=== PATIENT | female | born 1945 | race Caucasian/White ===

== ENCOUNTER → 2016-08-19 | Outpatient (REF) | payer MEDICARE, OTHER | LOC: M LAB REF 17:08 | PROVIDERS: ATTEND Internal Medicine Nephrology | DX: R60.0 Localized edema (principal) ==

== ENCOUNTER → 2017-08-05 | Outpatient (REF) | payer MEDICARE, OTHER ==
[2017-08-05 13:50] LABS: FERRITIN 19 NG/ML (8-252); IRON (FE) 114 UG/DL (50-170); PERCENT SATURATION 33.5 % (13.2-45.0); TOTAL IRON BINDING CAPACITY 340 UG/DL (250-450)
[2017-08-05 13:58] LABS: VITAMIN B12 LEVEL 473 PG/ML (247-911)
[2017-08-05 13:59] LABS: FOLATE 7.9 NG/ML (>5.4)
== END ==
LOC: M LAB REF 13:19
DX: D64.9 Anemia, unspecified (principal)
CPT/HCPCS: 82746

== ENCOUNTER → 2018-04-12 | Outpatient (CLI) | payer MEDICARE, OTHER | LOC: M LRY 13:22 | DX: N18.9 Chronic kidney disease, unspecified (principal); R31.9 Hematuria, unspecified | CPT/HCPCS: 76775 ==

== ENCOUNTER → 2018-07-13 | Outpatient (CLI) | payer MEDICARE, OTHER ==
--- NOTE | 2018-07-13 14:39 | REP ---
Chest two views HISTORY: Cough Comparison: None Linear densities are present in the left lower lobe consistent with atelectasis or scar. The right lung is clear. The heart is normal in size. The pulmonary vasculature is normal in appearance. The bony structure is intact. IMPRESSION: Left lower lobe atelectasis or scar. Electronically Signed by Vikram Hughes MD 07/13/2018 02:30 P
== END ==
LOC: M LRY 11:45
PROVIDERS: ATTEND Physician Assistant
DX: R91.8 Other nonspecific abnormal finding of lung field (principal); R05 Cough

== ENCOUNTER 2018-08-04 15:17 | Day surgery (SDC) | payer MEDICARE, OTHER ==
[~2018-08-04] VITALS: Ht 154.9 cm; Wt 54.5 kg
[2018-08-04] MEDS ORDERED: MAG400TA PO (15:34)
[2018-08-04] MEDS ORDERED: LISI-538 (15:34)
[2018-08-04] MEDS ORDERED: CALC600T6 (15:34)
[2018-08-04] MEDS ORDERED: METO1TAB7 PO (15:34)
[2018-08-04] MEDS ORDERED: LISI20TA PO (15:34)
[2018-08-04] MEDS ORDERED: SIMV40TA2 PO (15:34)
[2018-08-04] MEDS ORDERED: LEVO137T2 PO (15:34)
[2018-08-04] MEDS ORDERED: METF-723 PO (15:34)
[2018-08-04] MEDS ORDERED: OMEP40CA2 PO (15:34)
[2018-08-04] MEDS ORDERED: ADACEL/BOOSTRIX VACCINE (DIPHTH/PERTUSS/ACELL/TETANUS)0.5ML SYR (90715) IM ONE (15:45)
[2018-08-04] MEDS ORDERED: MORPHINE 2 MG/ML 1ML SYRINGE (J2270) IM ONE (16:00)
--- NOTE | 2018-08-04 16:48 | REP ---
PORTABLE LEFT WRIST, FOUR VIEWS: HISTORY: Injury. There are comminuted fractures of the distal radius and ulna. There is lateral displacement of the distal fracture fragments. There is narrowing of the lateral carpal and greater multangular first metacarpal joint spaces. IMPRESSION: Comminuted fractures of the distal radius and ulna. Electronically Signed by Vkiram Hughes MD 08/04/2018 04:54 P
[2018-08-04] MEDS ORDERED: cefTRIAXone SOD 1 GM in D5W MINI-BAG PLUS 50 ML IV ONE (17:00)
[2018-08-04 17:59] LABS: BASO % 0.3 % (0.0-1.0); EOS # 0.2 10^3/uL (0.0-0.50); EOS % 2.7 % (0.0-3.0); HEMATOCRIT 38.1 % (36.0-47.0); HEMOGLOBIN 11.9 g/dl (12.0-15.5); LYMPH # 1.3 10^3/uL (1.5-4.5); LYMPH % 16.1 % (24.0-44.0); MEAN CORPUSCULAR HEMOGLOBIN 26.1 pg (27.0-33.0); MEAN CORPUSCULAR HGB CONC 31.2 g/dl (32.0-36.5); MEAN CORPUSCULAR VOLUME 83.6 fl (80.0-96.0); MONO # 0.4 10^3/uL (0.0-0.8); MONO % 4.6 % (0.0-5.0); NEUTROPHILS % 75.8 % (36.0-66.0); PLATELET COUNT, AUTOMATED 330 10^3/uL (150-450); RED BLOOD COUNT 4.56 10^6/uL (4.00-5.40); WHITE BLOOD COUNT 7.8 10^3/uL (4.0-10.0)
[2018-08-04 18:25] LABS: INR 0.92; PROTHROMBIN TIME 12.4 SECONDS (12.1-14.4)
[2018-08-04 18:26] LABS: PARTIAL THROMBOPLASTIN TIME 30.6 SECONDS (25.4-37.6)
[2018-08-04] MEDS ORDERED: ROCURONIUM BROMIDE 50 MG/5 ML VIAL As Ordered ONE (18:28)
[2018-08-04] MEDS ORDERED: PROPOFOL 200 MG/20 ML VIAL As Ordered ONE (18:28)
[2018-08-04] MEDS ORDERED: LIDOCAINE 2% INJ 100 MG/5 ML SDV (FOR ANES.) As Ordered ONE (18:28)
[2018-08-04] MEDS ORDERED: ONDANSETRON 4MG/2ML VIAL (J2405) As Ordered ONE (18:28)
[2018-08-04] MEDS ORDERED: dexameTHASONE 4 MG/ML 1ML VIAL (J1100) As Ordered ONE ×2 (18:28→18:33)
[2018-08-04] MEDS ORDERED: fentaNYL 100 MCG/2 ML INJECTION (J3010) As Ordered ONE (18:29)
[2018-08-04] MEDS ORDERED: MIDAZOLAM INJ 2 MG/2 ML VIAL (J2250) As Ordered ONE (18:29)
[2018-08-04] MEDS ORDERED: BUPIVACAINE/EPIN 0.25% 30 ML VIAL As Ordered ONE (18:38)
[2018-08-04] MEDS ORDERED: ceFAZolin 1GM INJ (J0690 PER 500MG) As Ordered ONE (18:38)
--- NOTE | 2018-08-04 18:43 | ED PDOC ---
Post-Departure Follow-Up SPOKE WITH DR. OSORIO, ANESTHESIA, REGARDING PT. ADVISED B/P UPON ARRIVAL WAS HIGH AND WILL BE RETAKEN MANUALLY BEFORE SHE GOES TO THE OR. ADVISED WHEN DR. HANSON SAW THIS PT, HE DID NOT THINK THE PT NEEDED TO BE SEEN BY HOSPITALIST PRIOR TO HER GOING TO THE O.R. WILL RECHECK THE B/P PRIOR TO PT LEAVING THE E.D. MARCOS POWELL PA-C Aug 04, 2018 18:43
[2018-08-04] MEDS ORDERED: MORPHINE 2 MG/ML 1ML SYRINGE (J2270) IV ONE (18:45)
[2018-08-04] MEDS ORDERED: PATIENT COMMENTS (18:51)
--- NOTE | 2018-08-04 18:54 | REP ---
Portable chest x-ray: Single view: History: Preop. Comparison study: July 13, 2018. Findings: There is a prominent soft tissue density in the right cardiophrenic angle consistent with a prominent epicardial fat pad. The lungs are well inflated and otherwise clear. There is minimal linear fibrosis in the left base. Heart is not enlarged. The aorta is somewhat tortuous. No significant bony abnormality. Impression: Prominent epicardial fat pad in the right cardiophrenic angle. Linear fibrosis left base. Otherwise no acute disease. Electronically Signed by Tk Arteaga MD 08/04/2018 07:23 P
[2018-08-04 19:30] LABS: BLOOD UREA NITROGEN 17 MG/DL (7-18); CALCIUM LEVEL 8.1 MG/DL (8.8-10.2); CARBON DIOXIDE LEVEL 27 MEQ/L (21-32); CHLORIDE LEVEL 104 MEQ/L (98-107); CREATININE FOR GFR 0.91 MG/DL (0.55-1.30); GLOMERULAR FILTRATION RATE > 60.0 (>39); GLUCOSE, FASTING 103 MG/DL (70-100); POTASSIUM SERUM 4.2 MEQ/L (3.5-5.1); SODIUM LEVEL 138 MEQ/L (136-145)
[2018-08-04] MEDS ORDERED: LABETALOL HCL 100 MG/20 ML VIAL IV STA (19:37)
--- NOTE | 2018-08-04 20:05 | CR.PDOC ---
General Date of Consultation: Aug 04, 2018 Referring Provider: Bernabe Holly MD Consultation REASON FOR CONSULTATION/CHIEF COMPLAINT: Risk assessment for this 72-year-old woman with left wrist fracture. HISTORY OF PRESENT ILLNESS: Patient is a 72-year-old woman with medical history significant for GERD, hyperlipidemia, hypothyroidism, diabetes and hypertension. Reason for consult, patient being planned for external fixation of her left wrist fracture, hence risk assessment. Patient was in her usual state of health until sometime today while walking to the mailbox, she slipped and fell, impacting her left arm on the ground with resultant fracture to the left wrist. She denied any loss of consciousness prior to the events or after she fell. She felt a lot of pain afterwards and activated EMS. Patient is able to walk 3-4 flights of stairs without being short of breath. She is a nonsmoker and adheres to her treatments and is compliant on her prescribed medications. She denies any chest pain, palpitations, shortness of breath, cough, nausea, vomiting, no change in her bowel or urinary habits. No unusual lower extremity swellings. No lower extremity pains. ALLERGIES: Please see below. HOME MEDICATIONS: Please see below. PAST MEDICAL HISTORY: Per HPI PAST SURGICAL HISTORY: 1. Removal of cyst from ovary 30 years ago 2. Tonsillectomy. 3. Gallbladder removal. FAMILY HISTORY: Father: , from a heart attack Mother: , was diagnosed with pancreatic cancer Siblings: from ovarian cancer Children: 2 children, lost her son at an early age. SOCIAL HISTORY: and lives with her . Denies alcohol use. Denies smoking, denies illicit drug use. REVIEW OF SYSTEMS: She denies any chest pain, palpitations, shortness of breath, cough, nausea, v omiting, no change in her bowel or urinary habits. No unusual lower extremity swellings. No lower extremity pains. All other system review negative. 10 point review of system was done. PHYSICAL EXAMINATION: GENERAL APPEARANCE: Elderly woman, lying calmly in bed, not in any apparent distress. She is not pale, anicteric and afebrile HEENT: Atraumatic. Neck: Supple. LUNGS: Clear to auscultation bilaterally. CARDIOVASCULAR: S1 and 2 heard, no murmurs, rubs or gallops. ABDOMEN: Soft, not tender, not distended. Bowel sounds normoactive. MUSCULOSKELETAL: Left hand splint. EXTREMITIES: No pedal edema, 2+ bilateral pedal pulses noted. NEUROLOGICAL: Awake, alert, oriented 3. PSYCHIATRIC: Normal affect LABORATORY DATA: Please see below. DIAGNOSES: Left wrist fracture Elevated systolic blood pressure. RECOMMENDATIONS: 1. I will give patient a stat dose of IV labetalol 10 mg it is clear that her level of pain may be responsible for elevated systolic blood pressure at this time. 2. Labs and EKG reviewed and within acceptable limits. 3. Patient is a moderate risk going for a low to moderate risk procedure. I do not see any reason for holding her surgery. 4. She may be commenced on her usual outpatient medications post surgery as soon as is safe for her to take by mouth. 5. DVT prophylaxis will be deferred to the surgeons to start as soon as when safe. 6. Thank you for the opportunity to take care of your patient. Vital Signs/I&O Vital Signs Date Time Temp Pulse Resp B/P (MAP) Pulse Ox O2 Delivery O2 Flow Rate FiO2 08/04/18 19:31 62 18 184/86 (118) 99 08/04/18 15:22 98.8 Room Air Laboratory Data Labs 24H Laboratory Tests 2 08/04/18 17:51: Immature Granulocyte % (Auto) 0.5, White Blood Count 7.8, Red Blood Count 4.56, Hemoglobin 11.9L, Hematocrit 38.1, Mean Corpuscular Volume 83.6, Mean Corpuscular Hemoglobin 26.1L, Mean Corpuscular Hemoglobin Concent 31.2L, Red Cell Distribution Width 14.8H, Platelet Count 330, Neutrophils (%) (Auto) 75.8H, Lymphocytes (%) (Auto) 16.1L, Monocytes (%) (Auto) 4.6, Eosinophils (%) (Auto) 2.7, Basophils (%) (Auto) 0.3, Neutrophils # (Auto) 6.0, Lymphocytes # (Auto) 1.3L, Monocytes # (Auto) 0.4, Eosinophils # (Auto) 0.2, Basophils # (Auto) 0.0, Nucleated Red Blood Cells % (auto) 0.0, Prothrombin Time 12.4, Prothromb Time International Ratio 0.92, Activated Partial Thromboplast Time 30.6, Anion Gap 7L, Glomerular Filtration Rate > 60.0, Blood Urea Nitrogen 17, Creatinine 0.91, Sodium Level 138, Potassium Level 4.2, Chloride Level 104, Carbon Dioxide Level 27, Calcium Level 8.1L CBC/BMP Laboratory Tests 08/04/18 17:51 Red Blood Count 4.56, Mean Corpuscular Volume 83.6, Mean Corpuscular Hemoglobin 26.1 L, Mean Corpuscular Hemoglobin Concent 31.2 L, Red Cell Distribution Width 14.8 H, Neutrophils (%) (Auto) 75.8 H, Lymphocytes (%) (Auto) 16.1 L, Monocytes (%) (Auto) 4.6, Eosinophils (%) (Auto) 2.7, Basophils (%) (Auto) 0.3, Neutrophils # (Auto) 6.0, Lymphocytes # (Auto) 1.3 L, Monocytes # (Auto) 0.4, Eosinophils # (Auto) 0.2, Basophils # (Auto) 0.0, Calcium Level 8.1 L Allergies Coded Allergies: No Known Allergies (Unverified , 08/04/18) Home Medications Scheduled (Lisinopril/Hydrochlorothi 20-12.5 mg) 1 Tab Tab, 1 TAB PO DAILY, (Reported) Levothyroxine Sodium (Synthroid) 137 Mcg Tab, 137 MCG PO DAILY, (Reported) UNSURE OF DOSAGE Magnesium Oxide (Magnesium Oxide) 400 Mg Tab, 400 MG PO DAILY, (Reported) Metformin Hydrochloride (Metformin Hydrochloride E) 500 Mg Tab, 500 MG PO DAILY, (Reported) Metoprolol Succinate (Metoprolol Succinate ER) 50 Mg Tab, 50 MG PO DAILY, (R eported) Omeprazole (Omeprazole) 40 Mg Cap, 40 MG PO DAILY, (Reported) Simvastatin - High Dose (Simvastatin) 40 Mg Tab, 40 MG PO DAILY, (Reported) Miscellaneous Medications Calcium/Vitamin D (Calcium/Vitamin D 600-400 mg-Unit) 1 Tab Tab, (Reported) [Patient Comments] , (Reported) UNABLE TO CONFIRM DOSAGE OF LEVOTHYROXINE. PATIENT GETS HER MEDICATIONS DANDRE KIMBROUGH. SHE WILL HAVE SOMEONE BRING IN A LIST OF HER MEDICATIONS TOMORROW, Thursday08/05/2018 JOHNSON KENNEY MD Aug 04, 2018 20:05
[2018-08-04] MEDS ORDERED: ceFAZolin 2 GM/D5W 50 ML IV BAG (J0690 PER 500MG) As Ordered ONE (20:24)
[2018-08-04] MEDS ORDERED: ePHEDrine SULFATE 25 MG/5 ML(5MG/ML) SYRINGE As Ordered ONE (20:56)
[2018-08-04] MEDS ORDERED: HYDROmorphone HCL 2 MG/ML 1ML VIAL (J1170) As Ordered ONE (21:12)
--- NOTE | 2018-08-04 21:22 | ECGEPIP ---
Stationary ECG Study 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
[2018-08-04] MEDS ORDERED: MORPHINE 4 MG/ML 1ML VIAL/SYRINGE (J2270) IV PRN (22:00)
[2018-08-04] MEDS ORDERED: fentaNYL 100 MCG/2 ML INJECTION (J3010) IV PRN (22:00)
[2018-08-04] MEDS ORDERED: ONDANSETRON 4MG/2ML VIAL (J2405) IV PRN ×2 (22:00)
[2018-08-04] MEDS ORDERED: PERCOCET 5MG/325MG TAB PO PRN (22:00)
[2018-08-04] MEDS ORDERED: LR 1,000 ML IV SCH (22:00)
[2018-08-04] MEDS ORDERED: D5W/LR 1,000 ML IV SCH (22:00)
[2018-08-04] MEDS: PERCOCET 5MG/325MG TAB PO PRN (22:03)
[2018-08-04 22:45] VITALS: BP 180/82
[2018-08-04 23:15] VITALS: BP 172/80
[2018-08-05 00:15] VITALS: BP 178/78
[2018-08-05 01:33] VITALS: BP 172/76
[2018-08-05 02:30] VITALS: BP 163/70
[2018-08-05] MEDS: PERCOCET 5MG/325MG TAB PO PRN (02:31)
[2018-08-05 03:30] VITALS: BP 159/72
[2018-08-05 06:00] VITALS: BP 152/68
[2018-08-05] MEDS ORDERED: PERC5TAB12 PO (06:42)
[2018-08-05] MEDS ORDERED: metFORMIN (GLUCOPHAGE) 500 MG TAB PO SCH (08:00)
[2018-08-05 08:36] VITALS: BP 152/68
--- NOTE | 2018-08-05 08:49 | REP ---
Left wrist: Five views intraoperative: History: Left wrist fracture. 58 seconds of fluoroscopy time is reported. Findings: Five views of the left wrist obtained intraoperatively document external pin fixation and fracture reduction alignment. Electronically Signed by Tk Arteaga MD 08/05/2018 01:44 P
[2018-08-05] MEDS ORDERED: MAGNESIUM OXIDE 400 MG TAB (MAG-OX) PO SCH (09:00)
[2018-08-05] MEDS ORDERED: METOPROLOL SUCC (TopROL XL) 50MG **XL** TAB PO SCH (09:00)
--- NOTE | 2018-08-05 10:25 | CR ---
DATE OF CONSULTATION: 08/04/2018 Consultation for left wrist fracture deformity. HISTORY: A 72-year-old woman who fell on outstretched left upper extremity on ice getting the mail earlier today. The injury happened at 2 o'clock in the afternoon. Last meal at 11:30 a.m. She had no loss of consciousness. She was referred to the emergency room by emergency. She had imaging studies that reflected a comminuted intra-articular fracture of the distal radius and ulna, grossly with deformity. Her , Jourdan, is at home. He had some medical issues, as well, and is recovering from other surgeries himself. She has no known drug allergies. MEDICAL HISTORY: Includes history of hypothyroidism, hypertension, noninsulin-dependent diabetes for about 5 years, gastrointestinal (GI) reflux, and renal issues secondary to her diabetes. No recent surgeries. FAMILY HISTORY: Not contributory. REVIEW OF SYSTEMS: She is not complaining of any changes or new issues with neurologic status, headache, shortness of breath. No chest pain, no endocrine disorder. Denies numbness, denies tingling. Review of systems otherwise per history of present illness (HPI). CLINICAL EXAMINATION: Alert and cooperative. Mood and affect are appropriate. Appears to be her stated vintage of 72 or a bit younger. She is pleasant and cognitive. Clear voice. Left upper extremity: Obvious deformity. Sensate fingers. Tenderness with any manipulation. No trauma about the elbow. Small open wound on the ulnar side of the wrist with no active bleeding from that. No exposed bone. Palpable radial pulse is regular about 70 beats per minute. IMPRESSION: Comminuted intra-articular left wrist fracture involving the distal radius and ulna. RECOMMENDATIONS: I talked to the patient about different treatment options, including plating versus placement of an external fixator. I think in this case, external fixator is reasonable due to the significant comminution and deformity. She agreed to proceed with placement of an external fixator on the left wrist. We talked about the procedure. He had a discussion of risks including not limited to pain, failure, pin infection, need for more surgery, stiffness, and other issues. The patient agreed to proceed. Next, coordinated surgical scheduling with operating room (OR) staff. Talked with Dr. Christopher, anesthesia, with respect to OR scheduling, as well as coordinating with vendor for external fixator system. Also, preoperatively, I did meet with the patient's daughter in the preoperative holding area and discussed again the procedure. I spent approximately 1 hour with this patient and her case. MEDICATIONS: Include metformin 500 mg taken daily (dictation cut off) at night that she cannot remember the name of, and she also takes levothyroxine. For further details, please refer to medical record.
--- NOTE | 2018-08-05 13:14 | RO ---
DATE OF PROCEDURE: 08/04/2018 PREOPERATIVE DIAGNOSIS: Comminuted left wrist fracture involving the distal radius and the ulna. POSTOPERATIVE DIAGNOSIS: Comminuted left wrist fracture involving the distal radius and the ulna. PROCEDURE PERFORMED: Closed reduction of fracture and placement of external fixator device. SURGEON: Bernabe Holly MD ASSISTING: None. ANESTHESIA: Dr. Christopher, laryngeal mask airway (LMA), general. ESTIMATED BLOOD LOSS: Less than 20 mL, replaced with crystalloid. No tourniquet was required. No complications. COMPONENTS USED: Include Synthes size small external fixator set. CONSENT: Consent was reviewed in detail with the patient prior to the procedure. INDICATIONS FOR THE PROCEDURE: Fall on ice on outstretched left upper extremity. OPERATIVE COURSE: Identified holding area, site and side verified, brought to the operating room. Once the patient was anesthetized, she was prepped and draped in the usual fashion for exposure. Next, the distal radial diaphysis metaphysis area was palpated. I outlined the incision with a marking pen at the radial aspect. Incision was infiltrated with 0.25% Marcaine with epinephrine made with a 10 blade knife. Soft tissues were protected. Dissection continued down to the surface of the lateral aspect of the radius. Next, soft tissue protectors were utilized. I then drilled and placed the fixator pins. Next, once this was accomplished I verified placement fluoroscopically. Next, the wound was irrigated. The wound was closed around the pins using interrupted nylon stitch. Next, attention was turned to the second metacarpal. Incision was outlined with a marking pen. Dorsal lateral two incisions were made, developed down to the surface the metacarpal. The fixator pin guide was installed. The pins were drilled and placed. Next, these wounds were irrigated, closed with nylon around the pins. Next, the closed reduction was again implemented with significant improvement and appreciation of quite significant comminution. Next, the fixator was assembled and secured. Final fluoroscopic images reflected reduction of the fracture. Next, dressings were applied, pin protectors were installed. The fixator was verified to be secure. Final dressing was applied. The patient was then extubated, moved to the recovery room in good condition. For further details please refer to medical record.
== END 2018-08-05 10:36 | disposition home or self-care (01) ==
LOC: M ED 15:17 → EDBD 15:17 → M SDC 18:00 → M MS5PR 22:21 → M SDC 08-05 10:36
PROVIDERS: ATTEND Orthopaedic Surgery
DX: S52.592A Other fractures of lower end of left radius, initial encounter for closed fracture (principal); S52.692A Other fracture of lower end of left ulna, initial encounter for closed fracture; I10 Essential (primary) hypertension; E78.5 Hyperlipidemia, unspecified; E11.9 Type 2 diabetes mellitus without complications; E03.9 Hypothyroidism, unspecified; K21.9 Gastro-esophageal reflux disease without esophagitis; F32.9 Major depressive disorder, single episode, unspecified; Z79.899 Other long term (current) drug therapy; Z79.84 Long term (current) use of oral hypoglycemic drugs; W00.0XXA Fall on same level due to ice and snow, initial encounter; Y93.89 Activity, other specified; Y92.89 Other specified places as the place of occurrence of the external cause; Y99.8 Other external cause status
CPT/HCPCS: 20690; 25606; 71045; 73100; 73110; 80048; 85025; 85610; 85730; 90715; 93005; 96372; 96374; 99284; C1713; J0690; J0696; J1100; J1170; J2250; J2270; J2405; J3010

== ENCOUNTER → 2018-10-28 | Outpatient (REF) | payer MEDICARE, OTHER ==
[~2018-10-28] MED LIST: CALC600T6; LEVO137T2 PO; LISI-538; LISI20TA PO; MAG400TA PO; METF-723 PO; METO1TAB7 PO; OMEP40CA2 PO; PATIENT COMMENTS; PERC5TAB12 PO; SIMV40TA2 PO
[2018-10-28 18:48] LABS: BACTERIA, URINE AUTO NEGATIVE (NEGATIVE); RBC, URINE AUTO 3 /HPF (0-3); SQUAMOUS EPITHELIAL CELL UR AU 0 /HPF (0-6); WBC, URINE AUTO 0 /HPF (0-3)
== END ==
LOC: M LAB REF 17:33
PROVIDERS: ATTEND Internal Medicine Nephrology
DX: R31.9 Hematuria, unspecified (principal)

== ENCOUNTER → 2019-08-12 | Outpatient (CLI) | payer MEDICARE, OTHER ==
[~2019-08-12] MED LIST changes: -LISI20TA PO; +LISI20TA19 PO; -OMEP40CA2 PO; +OMEP40CA97 PO; -SIMV40TA2 PO; +SIMV40TA20 PO
--- NOTE | 2019-08-12 10:52 | REP ---
Clinical: Preoperative assessment. Technique: PA and lateral. Comparison: 08/04/2018, 07/13/2018 Findings: Abnormally large rounded contour along the right cardiac border is identified but essentially unchanged. Mediastinum and remainder of the cardiac silhouette are otherwise normal. Lung esquivel are clear. No consolidation or effusion. No pneumothorax. Skeletal structures are intact. Impression: Stable examination. No acute cardiopulmonary process identified. Electronically Signed by Eddie Ferreira MD 08/12/2019 10:44 A
== END ==
LOC: M LRY 09:55
PROVIDERS: ATTEND Internal Medicine Cardiovascular Disease
DX: Z01.811 Encounter for preprocedural respiratory examination (principal)

== ENCOUNTER 2019-08-22 08:53 | Inpatient (IN) | payer MEDICARE, OTHER ==
--- NOTE | 2019-08-18 16:20 | HPE ---
DATE OF ADMISSION: 08/22/2019 ATTENDING PHYSICIAN: Dr. Drake Botello CHIEF COMPLAINT: Left knee pain and stiffness. HISTORY: This is a pleasant 73-year-old female patient with progressively worsening left knee pain and stiffness that has failed to improve with conservative management. She has elected for surgical treatment for her continued symptoms. She has consented for a left total knee arthroplasty with Dr. Drake Botello. ALLERGIES: NO KNOWN DRUG ALLERGIES. CURRENT MEDICATIONS: - raloxifene 60 mg one p.o. daily - calcium 600 with vitamin D one p.o. b.i.d. - Toprol XL 50 mg one p.o. daily - lisinopril/hydrochlorothiazide 20 / 12.5 one p.o. daily - metformin 500 mg one p.o. daily - citalopram 40 mg one p.o. daily - meloxicam 15 mg one p.o. daily - omeprazole 40 mg one p.o. daily - simvastatin 40 mg one p.o. daily - levothyroxine 112 mcg one p.o. daily - ferrous sulfate 325 mg one p.o. daily - glipizide 5 mg one p.o. daily - albuterol 1 puff p.o. q.4-6 hours as needed for wheezing PAST MEDICAL HISTORY: Hypertension, hyperlipidemia, diabetes, stage III kidney failure, thyroid disease. PAST SURGICAL HISTORY: Noncontributory. FAMILY HISTORY: Noncontributory. SOCIAL HISTORY: Denies alcohol or tobacco use. REVIEW OF SYSTEMS: Denies fever, chills, chest pain, shortness breath, nausea, vomiting, diarrhea. Does report a recent upper respiratory infection for which she is finishing antibiotics today. Reports pain and stiffness with weightbearing activities in the left knee. PHYSICAL EXAMINATION: Height 59.75 inches, weight 151 pounds, temperature 97.5, blood pressure 121/78, pulse 67, respirations 14. Normocephalic, atraumatic. Neck: Supple and nontender with no lymphadenopathy or jugular venous distention (JVD). Cardiovascular: S1, S2 auscultated. Lungs: Clear to auscultation bilaterally. Abdomen: Soft, nontender. Extremities: Left lower extremity well perfused with intact range of motion with diffuse tenderness to palpation about the left knee. Overlying skin is intact with no rashes or breaks in the skin. LABORATORIES: White blood count 5.4, red blood count 4.53, hemoglobin 12.5, hematocrit 40.5, BUN 13, creatinine 1, ESR 13, PT 12.1, INR 0.89. EKG with long QT interval, possible hypocalcemia or quinidine like drug. Chest x-ray with no acute cardiopulmonary process. Medical optimization by Dede Gardner NP reviewed and reconciled, per chart today. IMPRESSION: Symptomatic left knee degenerative changes. PLAN: Consented for left total knee arthroplasty with Dr. Drake Botello on 08/22/2019.
[~2019-08-22] VITALS: Ht 154.9 cm; Wt 70.8 kg
[2019-08-22] VITALS (8 sets, daily range): BP systolic 118–132; BP diastolic 57–62; O2SAT 97
[~2019-08-22 08:53] MED LIST changes: -CALC600T6; +CALC600T6 PO; +CITA40TA4 PO; +FERR325T3 PO; +FISH1000 PO; +LR 1,000 ML IV ONE; +ceFAZolin SOD 2 GM in IV 1 EA IV ONE
[2019-08-22] MEDS ORDERED: fentaNYL 100 MCG/2 ML INJECTION (J3010) As Ordered ONE (10:25)
[2019-08-22] MEDS ORDERED: MIDAZOLAM INJ 2 MG/2 ML VIAL (J2250) As Ordered ONE ×2 (10:25→10:41)
[2019-08-22] MEDS ORDERED: LIDOCAINE 2% INJ 100 MG/5 ML SDV (FOR ANES.) As Ordered ONE (10:39)
[2019-08-22] MEDS ORDERED: propofoL 200 MG/20 ML VIAL As Ordered ONE (10:39)
[2019-08-22] MEDS ORDERED: ONDANSETRON 4MG/2ML VIAL (J2405) As Ordered ONE (10:40)
[2019-08-22] MEDS: MIDAZOLAM INJ 2 MG/2 ML VIAL (J2250) IV PRN ×2 (10:48→10:51)
[2019-08-22] MEDS ORDERED: ceFAZolin 1GM INJ (J0690 PER 500MG) As Ordered ONE (11:04)
[2019-08-22] MEDS ORDERED: BUPIVACAINE LIPOSOME/PF 1.3% 20ML VIAL (13.3MG/ML)(EXPAREL)(C9290 PER1MG) As Ordered ONE (11:05)
[2019-08-22] MEDS ORDERED: LIDOCAINE 1% MDV 20ML VIAL ONE (11:17)
[2019-08-22] MEDS ORDERED: ROPIvacaine 0.5% 30 ML INJECTION (J2795 PER 1MG) ONE (11:17)
[2019-08-22] MEDS ORDERED: EPINEPHrine INJ 1 MG/ML 1ML VIAL ONE (11:17)
[2019-08-22] MEDS ORDERED: fentaNYL 100 MCG/2 ML INJECTION (J3010) IV PRN ×2 (11:30→13:45)
--- NOTE | 2019-08-22 11:42 | IPN ---
DATE: 08/22/2019 Patient seen and examined. She wishes to go ahead with a left total knee arthroplasty. Preop clearance was obtained. She understands the nature this, the risks of bleeding, infection, damage to nerves, vessels, persistent pain, wear loosening, blood clots, medical problems, , among others.
[2019-08-22] MEDS ORDERED: ePHEDrine SULFATE 25 MG/5 ML(5MG/ML) SYRINGE As Ordered ONE (12:12)
[2019-08-22] MEDS ORDERED: TRANEXAMIC ACID 100 MG/ML 10ML VIAL As Ordered ONE (12:25)
[2019-08-22] MEDS ORDERED: EPINEPHrine INJ 1 MG/ML 1ML VIAL As Ordered ONE (12:25)
[2019-08-22] MEDS ORDERED: ACETAMINOPHEN 1000MG 100ML IV BTL (OFIRMEV) (J0131 PER 10MG) As Ordered ONE (12:25)
[2019-08-22] MEDS ORDERED: ONDANSETRON 4MG/2ML VIAL (J2405) IV PRN ×2 (13:45→14:00)
[2019-08-22] MEDS ORDERED: PERCOCET 5MG/325MG TAB PO PRN ×4 (13:45→20:45)
[2019-08-22] MEDS ORDERED: LR 1,000 ML IV SCH ×2 (13:45→14:00)
[2019-08-22] MEDS ORDERED: METOCLOPRAMIDE INJ 10MG/2ML VIAL (J2765) IV PRN (13:45)
[2019-08-22] MEDS ORDERED: traMADol 50 MG TAB PO PRN (14:00)
[2019-08-22] MEDS ORDERED: MORPHINE 2 MG/ML 1ML VIAL (J2270) IV PRN (14:00)
[2019-08-22] MEDS ORDERED: MORPHINE 4 MG/ML 1ML VIAL/SYRINGE (J2270) IV PRN (14:00)
--- NOTE | 2019-08-22 14:20 | REP ---
LEFT KNEE, TWO VIEWS: Two views left knee performed. Total knee prosthesis is in place and appears to be in good position. Osseous structures are intact and well aligned. Metallic skin luisa are seen anteriorly. There is air in the anterior soft tissues. Electronically Signed by Espinoza Espinal MD 08/22/2019 04:02 P
--- NOTE | 2019-08-22 16:10 | CR.PDOC ---
General Date of Consultation: Aug 22, 2019 Consultation REASON FOR CONSULTATION/CHIEF COMPLAINT: Management of medical comorbidities s/p total left knee arthroplasty HISTORY OF PRESENT ILLNESS: Ms Taveras is a pleasant 73 year old woman with a long history of osteoarthritis. She has failed outpatient treatment and has given consent to have a total left knee replacement today. She is seen post-op in the PACU; pt reported she is doing very well, no pain or discomfort and feels well enough to walk down the hallway. NO further issues reported at this time. ALLERGIES: Please see below. HOME MEDICATIONS: Please see below. PAST MEDICAL HISTORY: 1. Hypertension 2. DMII 3. Hyperlipidemia 4. Stage III CKD 5. Hypothyroidism PAST SURGICAL HISTORY: 1.Cholecystectomy 2.Tonsillectomy 3. Ovarian cyst removal FAMILY HISTORY: Father: [place], prostate ca, Heart disease Mother: [place], Heart disease, pancreatic ca Siblings: d/t ovarian ca SOCIAL HISTORY: Tobacco use: smoked 25-30 years ago ETOH: denied Illicit drug use: denied IV drug use: denied REVIEW OF SYSTEMS: General: Reports: Normal Appetite; Denies: Chills, Night Sweats, Fatigue, Malaise Constitutional: Denies: Chills, Fever, Night Sweats Eyes: Denies: Pain, Vision change ENT: Denies: Head Aches, Ear Pain, Dysphagia Skin: Denies: Rash, Lesions, Breakdown Pulmonary: Denies: Dyspnea, Cough Cardiovascular: Denies: Chest Pain, Palpitations, Orthopnea, Paroxysmal Noc. Dyspnea, Lt Headedness Gastrointestinal: Denies: Nausea, Vomiting, Abdominal Pain, Diarrhea, Constipation Genitourinary: Denies: Dysuria, Frequency, Incontinence, Retention Hematologic: Denies: Bruising, Bleeding Excessively Musculoskeletal: Denies: Neck Pain, Back Pain, Joint Pain, Muscle Pain, Spasms Neurological: Denies: Weakness, Numbness, Change in speech, Confusion Psych: Reports: Mood Normal; Denies: Depression, Memory Issues PHYSICAL EXAMINATION: VITAL SIGNS: Please see below. General Exam: Positive: Alert, No Acute Distress Eye Exam: Positive: Conjunctiva & lids normal; Negative: Sclera icteric ENT Exam: Positive: Atraumatic, Mucous membr. moist/pink, Pharynx Normal Neck Exam: Positive: Supple; Negative: thyromegaly Chest Exam: Positive: Clear to auscultation, Normal air movement Heart Exam: Positive: Rate Normal, Regular Rhythm, Normal S1, Normal S2; Negative: Murmurs, Rubs Telemetry: Positive: No significant arrhythmia Abdomen Exam: Positive: Normal bowel sounds, Soft, Hepatospenomegaly; Negative: Tenderness Extremity Exam: Positive: Edema; Negative: Clubbing, Cyanosis Skin Exam: Positive: Nl turgor and temperature; Negative: Rash, Breakdown Neuro Exam: Positive: Normal Speech, Cranial Nerves 3-12 NL Psych Exam: Positive: Mood NL, Oriented x 3 LABORATORY DATA: Please see below. ASSESSMENT/PLAN: 1. Total left knee arthroplasty - Management per orthopedics 2. Hypertension - continue metoprolol. 3. Hyperlipidemia - statin 4. Hypothyroid - synthroid 5. Diabetes - hold metformin, - Lispro as per sliding scale. 6. GERD - Omeprazole 7. Anxiety/ depression - citalopram. Vital Signs/I&O Vital Signs Date Time Temp Pulse Resp B/P (MAP) Pulse Ox O2 Delivery O2 Flow Rate FiO2 08/22/19 11:35 66 18 132/66 (88) 95 Nasal Cannula 3 08/22/19 09:30 97.2 Laboratory Data Labs 24H Laboratory Tests 2 08/22/19 09:38: Bedside Glucose (Misc Panel) 108 Allergies Coded Allergies: No Known Allergies (Unverified , 08/17/19) Home Medications Scheduled Calcium Carbonate/Vitamin D3 (Calcium 600-Vit D3 400 Tablet) 1 Tab Tab, 1 TAB PO BID, (Reported) Citalopram Hydrobromide (Citalopram HBr) 40 Mg Tablet, 40 MG PO DAILY, (Reported) Ferrous Sulfate (Ferrous Sulfate) 325 Mg Tablet.dr, 325 MG PO DAILY, (Reported) Levothyroxine Sodium (Levothyroxine Sodium) 137 Mcg Tab, 137 MCG PO DAILY, (Reported) Metformin HCl (Metformin HCl) 500 Mg Tablet, 500 MG PO DAILY, (Reported) Metoprolol Succinate (Metoprolol Succinate) 50 Mg Tab, 50 MG PO DAILY, (Reported) [place]-3 Fatty Acids/Fish Oil (Fish Oil 1,000 mg Capsule) 1 Each Capsule, 1,000 MG PO DAILY, (Reported) Omeprazole (Omeprazole) 40 Mg Cap, 40 MG PO DAILY, (Reported) Rivaroxaban (Xarelto) 10 Mg Tablet, 10 MG PO DAILY for 11 Days, #11 Simvastatin (Simvastatin) 40 Mg Tab, 40 MG PO QHS, (Reported) Scheduled PRN Oxycodone HCl/Acetaminophen (Percocet 5-325 mg Tablet) 1 Each Tablet, 1 TAB PO Q4H PRN for PAIN, #30 Zolpidem Tartrate (Zolpidem Tartrate) 10 Mg Tablet, 10 MG PO QHS PRN for SLEEP, (Reported) DAV ARELLANO PA-C Aug 22, 2019 16:10 FEDERICO GAN MD Aug 22, 2019 20:36
[2019-08-22] MEDS ORDERED: CHLORTHALIDONE 25 MG TAB PO SCH (16:15)
[2019-08-22] MEDS ORDERED: ALBUTEROL 90 MCG/ACT 8GM HFA INHALER INH PRN (16:15)
[2019-08-22] MEDS ORDERED: ZOLP10TA2 PO (18:53)
[2019-08-22] MEDS ORDERED: METF500T13 PO (18:53)
[2019-08-22] MEDS: IPRATROPIUM 0.5MG/ALBUTEROL 2.5MG INH SOL UD 3ML (DUONEB)(J7620) NEB SCH ×2 (19:53→19:55)
[2019-08-22] MEDS: ceFAZolin SOD 2 GM in IV 1 EA IV SCH (20:26)
[2019-08-22] MEDS: SIMVASTATIN 40 MG TAB PO SCH (20:26)
[2019-08-22] MEDS ORDERED: GLUCOSE 4 GM CHEW TABLET PO PRN (20:45)
[2019-08-22] MEDS ORDERED: GLUCAGON FOR INJ 1 MG VIAL (J1610) SC PRN (20:45)
[2019-08-22] MEDS ORDERED: DEXTROSE 50% 50 ML SYRINGE IV PRN (20:45)
[2019-08-22] MEDS ORDERED: SYMBICORT 80/4.5MCG INHALER 6GM INH SCH (21:00)
[2019-08-22] MEDS: HumaLOG INSULIN (NovoLOG) PER UNIT SC SCH (21:00)
[2019-08-22] MEDS ORDERED: FLUTICASONE PROP 0.05% NASAL SPRAY 16 GM (FLONASE) NARES SCH (21:00)
[2019-08-23 02:00] VITALS: BP 119/56
[2019-08-23] MEDS: IPRATROPIUM 0.5MG/ALBUTEROL 2.5MG INH SOL UD 3ML (DUONEB)(J7620) NEB SCH ×5 (02:53→23:52)
[2019-08-23] MEDS: ceFAZolin SOD 2 GM in IV 1 EA IV SCH (03:40)
[2019-08-23] MEDS: LEVOTHYROXINE 137MCG TABLET (0.137MG) PO SCH (05:41)
[2019-08-23 06:00] VITALS: BP 132/64
[2019-08-23] MEDS ORDERED: LEVOTHYROXINE 137MCG TABLET (0.137MG) PO SCH (06:00)
[2019-08-23] MEDS ORDERED: PERCOCET 5MG/325MG TAB PO PRN (06:00)
[2019-08-23 06:20] LABS: BASO % 0.3 % (0.0-1.0); EOS # 0.1 10^3/uL (0.0-0.5); HEMATOCRIT 33.5 % (36.0-47.0); HEMOGLOBIN 10.4 g/dl (12.0-15.5); LYMPH # 1.1 10^3/uL (1.5-5.0); LYMPH % 15.1 % (24.0-44.0); MEAN CORPUSCULAR VOLUME 90.1 fl (80.0-96.0); MONO # 0.7 10^3/uL (0.0-0.8); PLATELET COUNT, AUTOMATED 231 10^3/uL (150-450); RED BLOOD COUNT 3.72 10^6/uL (4.00-5.40)
[2019-08-23] MEDS ORDERED: XARE10TA PO (06:35)
[2019-08-23] MEDS ORDERED: PERC5TAB12 PO (06:35)
[2019-08-23 06:42] LABS: CALCIUM LEVEL 8.2 MG/DL (8.8-10.2); CREATININE FOR GFR 1.05 MG/DL (0.55-1.30); GLOMERULAR FILTRATION RATE 54.4 (>39); POTASSIUM SERUM 4.1 MEQ/L (3.5-5.1)
--- NOTE | 2019-08-23 07:26 | RO ---
DATE OF PROCEDURE: 08/22/2019 PREOP DIAGNOSIS: Left knee osteoarthritis. POSTOPERATIVE DIAGNOSIS: Left knee osteoarthritis. PROCEDURE: Left total knee arthroplasty using an Attune rotating platform posterior stabilized size 6 femur, size 5 tibia, 35 patellar button 6 thickness spacer. SURGEON: Dr. Drake Botello. TOP COLLAR MAKER: LENNY Henderson ANESTHESIA: Spinal ESTIMATED BLOOD LOSS: Less than 50 COMPLICATIONS: None. INDICATIONS: 73-year woman with gradually worsening knee pain wished to go ahead with a knee replacement. DESCRIPTION OF PROCEDURE: The patient was taken to the operating room, placed in the supine position after spinal anesthesia was induced. The left lower extremity was prepped and draped in the usual sterile fashion. Time-out was performed. Tourniquet was inflated. I then created a longitudinal incision over the anterior aspect of the knee. Sharp dissection was carried down through subcutaneous tissue. I then performed a medial parapatellar arthrotomy per routine, everted the patella, removed some of the fat pad. Remove some large osteophytes from around the femur and then used a canal initiating reamer on the femoral side followed by the intramedullary guide set at 5 degrees of valgus and an 11 mm cut. I decided take two extra millimeters because of a flexion contracture. This was pinned in place . The distal femoral cut was made affecting soft tissues. I then sized the femur to be a 6 and the remaining cuts were made protecting soft tissues. I then prepared the tibia and the tibial alignment guide was placed with an appropriate amount of valgus and posterior slope. This was pinned in place at 2 mm off the low side, which was 10 off the high side. She had a pretty deficient medial tibial plateau. I then made the proximal tibia cut protecting soft tissues removed the bone. I then used a mobile designer to removed soft tissue and osteophytes from either side of the knee. Spacer blocks were then used and a size 6 seemed to be the most appropriate. I checked this again after doing the box cut, which was done next by securing the box in place and making the remaining three cuts. I did have to do a fairly extensive medial release. I had to remove the large osteophytes from the medial tibial plateau. The tibial surface was then prepared, a size 5 fit nicely. This was pinned in place, drilled broached and the trial components were placed. The size 6 fit nicely. She had excellent soft tissue balance. Excellent range of motion. I had also removed the posterior cruciate ligament (PCL) at the time of doing the box cut. I had elected to use a posterior stabilized knee because of the significant deformity she had in the flexion contracture. I then freehand cut the patella removing about 7 mm of bone. I drilled with the [address] and the patella tracked very nicely. I placed the drill holes in the end of the femur and the promotions assistant sales marketing prepared the bone cement modern technique. I then irrigated, dried the bony surface. I placed the Exparel in the deep tissues and then cemented in the components, brought the knee out in extension. I removed excess bone cement, cemented on the patella, held this in place with a clamp, removing excess bone cement. Once the cement hardened, we removed the patellar clamp. I irrigated and placed the TXA in the deep tissue. Then repaired the deep tissue and #1-0 Vicryl suture and then running Stratafix in both directions irrigating deeply one final time. I then closed subcu with #2-0 Vicryl, skin with luisa. Sterile dressing was applied. Tourniquet was deflated. She was taken to recovery room in stable condition. There were no known complications. The plan be routine postop. The promotions assistant sales marketing was instrumental in holding retractors and assisting in mixing bone cement and assisting in wound closure.
[2019-08-23] MEDS: HumaLOG INSULIN (NovoLOG) PER UNIT SC SCH ×4 (08:03→20:38)
[2019-08-23] MEDS: MOM 30ML SUSPENSION UDC PO SCH (08:22)
[2019-08-23] MEDS: OMEPRAZOLE 20 MG CAP PO SCH (08:22)
[2019-08-23] MEDS: CitaloPRAM (CeleXA) 20 MG TAB PO SCH (08:23)
[2019-08-23] MEDS: METOPROLOL SUCC (TopROL XL) 50MG **XL** TAB PO SCH (08:23)
[2019-08-23] MEDS: FERROUS SULFATE 325MG TAB PO SCH (08:23)
[2019-08-23] MEDS: MIRALAX *UNIT DOSE* 17GM PACKET PO SCH (08:23)
[2019-08-23] MEDS ORDERED: MONTELUKAST 10 MG TAB PO SCH (09:00)
[2019-08-23] MEDS ORDERED: OMEPRAZOLE 20 MG CAP PO SCH (09:00)
[2019-08-23] MEDS ORDERED: SIMVASTATIN 40 MG TAB PO SCH (09:00)
[2019-08-23] MEDS ORDERED: METOPROLOL SUCC (TopROL XL) 50MG **XL** TAB PO SCH (09:00)
[2019-08-23] MEDS ORDERED: FERROUS SULFATE 325MG TAB PO SCH (09:00)
[2019-08-23] MEDS ORDERED: amLODIPine 5 MG TAB PO SCH (09:00)
[2019-08-23] MEDS ORDERED: CETIRIZINE (ZyrTEC) 10 MG TAB PO SCH (09:00)
[2019-08-23] MEDS ORDERED: CitaloPRAM (CeleXA) 20 MG TAB PO SCH (09:00)
[2019-08-23] MEDS: PERCOCET 5MG/325MG TAB PO PRN ×2 (11:08→17:36)
[2019-08-23 14:00] VITALS: BP 131/67
[2019-08-23] MEDS ORDERED: RIVAROXABAN 10 MG TAB (XARELTO) PO SCH (18:00)
[2019-08-23] MEDS: SIMVASTATIN 40 MG TAB PO SCH (20:37)
[2019-08-23 21:00] VITALS: O2SAT 97
[2019-08-23 22:00] VITALS: BP 133/66
[2019-08-24] MEDS: PERCOCET 5MG/325MG TAB PO PRN ×2 (03:16→12:18)
[2019-08-24] MEDS: LEVOTHYROXINE 137MCG TABLET (0.137MG) PO SCH (05:10)
[2019-08-24 06:00] VITALS: BP 125/63
[2019-08-24] MEDS ORDERED: XARE10TA PO (06:44)
[2019-08-24 08:01] VITALS: BP 125/63
[2019-08-24] MEDS: METOPROLOL SUCC (TopROL XL) 50MG **XL** TAB PO SCH (08:01)
[2019-08-24] MEDS: OMEPRAZOLE 20 MG CAP PO SCH (08:02)
[2019-08-24] MEDS: CitaloPRAM (CeleXA) 20 MG TAB PO SCH (08:02)
[2019-08-24] MEDS: FERROUS SULFATE 325MG TAB PO SCH (08:02)
[2019-08-24] MEDS: MOM 30ML SUSPENSION UDC PO SCH (08:02)
[2019-08-24] MEDS: HumaLOG INSULIN (NovoLOG) PER UNIT SC SCH ×2 (08:04→12:19)
[2019-08-24] MEDS: MIRALAX *UNIT DOSE* 17GM PACKET PO SCH (08:08)
[2019-08-24] MEDS: IPRATROPIUM 0.5MG/ALBUTEROL 2.5MG INH SOL UD 3ML (DUONEB)(J7620) NEB SCH (08:17)
[2019-08-24] MEDS ORDERED: FLUBLOK(EGG FREE)(QUAD)INFLUENZA VACC 0.5ML SYRINGE (90682)18YRS&OLDER IM ONE (09:00)
--- NOTE | 2019-08-24 12:56 | IPNPDOC ---
Text Note Date of Service The patient was seen on 08/24/19. NOTE SUBJECTIVE: Ms Taveras is a pleasant 73 year old woman with a long history of osteoarthritis. She has failed outpatient treatment and has given consent to have a total left knee replacement today. Pt is seen post-op day 2 today. She is sitting up in bed and ready to go home. Her and their friend will assist her and [facility] is arranging services at home on her behalf. REVIEW OF SYSTEMS: General: Reports: Normal Appetite; Denies: Chills, Night Sweats, Fatigue, Malaise Constitutional: Denies: Chills, Fever, Night Sweats Eyes: Denies: Pain, Vision change ENT: Denies: Head Aches, Ear Pain, Dysphagia Skin: Denies: Rash, Lesions, Breakdown Pulmonary: Denies: Dyspnea, Cough Cardiovascular: Denies: Chest Pain, Palpitations, Orthopnea, Paroxysmal Noc. D yspnea, Lt Headedness Gastrointestinal: Denies: Nausea, Vomiting, Abdominal Pain, Diarrhea, Constipation Genitourinary: Denies: Dysuria, Frequency, Incontinence, Retention Hematologic: Denies: Bruising, Bleeding Excessively Musculoskeletal: Denies: Neck Pain, Back Pain, Joint Pain, Muscle Pain, Spasms Neurological: Denies: Weakness, Numbness, Change in speech, Confusion Psych: Reports: Mood Normal; Denies: Depression, Memory Issues PHYSICAL EXAMINATION: VITAL SIGNS: Please see below. General Exam: Positive: Alert, No Acute Distress Eye Exam: Positive: Conjunctiva & lids normal; Negative: Sclera icteric ENT Exam: Positive: Atraumatic, Mucous membr. moist/pink, Pharynx Normal Neck Exam: Positive: Supple; Negative: thyromegaly Chest Exam: Positive: Clear to auscultation, Normal air movement Heart Exam: Positive: Rate Normal, Regular Rhythm, Normal S1, Normal S2; Negative: Murmurs, Rubs Telemetry: Positive: No significant arrhythmia Abdomen Exam: Positive: Normal bowel sounds, Soft, Hepatospenomegaly; Negative: Tenderness Extremity Exam: Positive: Edema; Negative: Clubbing, Cyanosis Skin Exam: Positive: Nl turgor and temperature; Negative: Rash, Breakdown Neuro Exam: Positive: Normal Speech, Cranial Nerves 3-12 NL Psych Exam: Positive: Mood NL, Oriented x 3 LABORATORY DATA: Please see below. ASSESSMENT/PLAN: 1. Total left knee arthroplasty - Management per orthopedics 2. Hypertension - continue metoprolol. 3. Hyperlipidemia - continue statin 4. Hypothyroid - Continue Synthroid 5. Diabetes - hold oral anti-glycemics - Lispro as per sliding scale. 6. GERD - Continue omeprazole 7. Anxiety/ depression - Continue citalopram. VS,Fishbone, I+O VS, Fishbone, I+O Vital Signs Date Time Temp Pulse Resp B/P (MAP) Pulse Ox O2 Delivery O2 Flow Rate FiO2 08/24/19 12:18 18 Room Air 08/24/19 08:01 77 125/63 08/24/19 06:00 98.6 92 08/23/19 18:06 1.0 08/23/19 09:00 93 I&O- Last 24 Hours up to 6 AM 08/24/19 06:00 Intake Total 1430 ml Output Total 1550 ml Balance -120 ml DAV ARELLANO PA-C Aug 24, 2019 12:56
--- NOTE | 2019-08-26 11:58 | DSES ---
DATE OF ADMISSION: 08/22/2019 DATE OF DISCHARGE: 08/24/2019 ADMISSION DIAGNOSIS: Left knee osteoarthritis. OTHER DIAGNOSES: Hypertension, hyperlipidemia, diabetes, stage III chronic kidney disease, hypothyroid, gastroesophageal reflux disease, migraines. DISCHARGE DIAGNOSIS: Left knee osteoarthritis status post left total knee arthroplasty. HISTORY: The patient is a 73-year-old female that had progressively worsening left knee pain and stiffness. She failed to improve with conservative measures. She continued to have symptoms with weightbearing activities and activities of daily living. She consented for an elective left total knee arthroplasty with Dr. Botello for her continued symptoms. OPERATION PERFORMED: Left total knee arthroplasty. HOSPITAL COURSE: The patient underwent a left total knee arthroplasty under spinal anesthesia, which was uneventful. Her hospital course was without complication, and she was up with physical therapy per their protocol, weightbearing as tolerated on the left lower extremity. The patient was discharged on oral pain medications and will resume her preoperative medications and diet. The patient will use her thromboembolic deterrent stockings and take her anticoagulant postoperatively to prevent deep venous thrombosis. The patient will follow up in our office in 12-15 days for wound check and staple removal. She is encouraged to contact our office sooner if there is any increase in pain, redness, drainage, numbness or tingling in the extremity, fever greater than 101 degrees or any other concerns. Please see medical record for additional details.
== END 2019-08-24 12:50 | disposition home health service (06) | DRG 470 ==
LOC: M OR 08:53 → M MS5PR 17:00
PROVIDERS: ADMIT Orthopaedic Surgery; ATTEND Orthopaedic Surgery
PROC: 0SRD0J9 Replacement of Left Knee Joint with Synthetic Substitute, Cemented, Open Approach (ICD-10-PCS; principal; 2019-08-22 11:55)
DX: M17.12 Unilateral primary osteoarthritis, left knee (principal); I12.9 Hypertensive chronic kidney disease with stage 1 through stage 4 chronic kidney disease, or unspecified chronic kidney disease; E78.5 Hyperlipidemia, unspecified; E11.22 Type 2 diabetes mellitus with diabetic chronic kidney disease; N18.3 Chronic kidney disease, stage 3 (moderate); E03.9 Hypothyroidism, unspecified; Z90.49 Acquired absence of other specified parts of digestive tract; K21.9 Gastro-esophageal reflux disease without esophagitis; F41.8 Other specified anxiety disorders; G43.909 Migraine, unspecified, not intractable, without status migrainosus; Z79.899 Other long term (current) drug therapy; Z79.84 Long term (current) use of oral hypoglycemic drugs

== ENCOUNTER → 2021-01-08 | Outpatient (CLI) | payer MEDICARE, OTHER ==
[~2021-01-08] MED LIST changes: +CALC600T17 PO; -CALC600T6 PO; -CITA40TA4 PO; +CITA40TA7 PO; -LISI-538; -LISI20TA19 PO; +LISI20TA33; +LISI20TA35 PO; -LR 1,000 ML IV ONE; -MAG400TA PO; +MAGN400T35 PO; +METF500T13 PO; +OMEP40CA4 PO; -OMEP40CA97 PO; +XARE10TA PO; +ZOLP10TA2 PO; -ceFAZolin SOD 2 GM in IV 1 EA IV ONE
== END ==
LOC: M CARPUL 07:54
PROVIDERS: ATTEND Nurse Practitioner Family
DX: R05 Cough (principal)

== ENCOUNTER → 2021-01-30 | Outpatient (REF) | payer MEDICARE, OTHER ==
[~2021-01-30] MED LIST changes: +CITA40TA4 PO; -CITA40TA7 PO
== END ==
LOC: M LAB REF 13:08
PROVIDERS: ATTEND Nurse Practitioner Family
DX: E83.42 Hypomagnesemia (principal)

== ENCOUNTER → 2021-08-21 | Outpatient (REF) | payer MEDICARE, OTHER ==
[~2021-08-21] MED LIST changes: -CITA40TA4 PO; +CITA40TA7 PO
== END ==
LOC: M LAB REF 12:32
PROVIDERS: ATTEND Nurse Practitioner Family
DX: E83.42 Hypomagnesemia (principal)

== ENCOUNTER → 2021-10-21 | Outpatient (CLI) | payer MEDICARE, OTHER | LOC: M RAD 13:51 | PROVIDERS: ATTEND Nurse Practitioner Family | DX: J45.30 Mild persistent asthma, uncomplicated (principal); Z86.16 Personal history of COVID-19 ==

== ENCOUNTER 2022-03-09 14:56 | Inpatient (IN) | payer MEDICARE, OTHER ==
[~2022-03-09] VITALS: Ht 154.9 cm; Wt 70.7 kg
[2022-03-09 15:32] LABS: BASO % 0.5 % (0.0-1.0); EOS # 0.3 10^3/uL (0.0-0.5); EOS % 3.2 % (0.0-3.0); HEMATOCRIT 39.3 % (36.0-47.0); HEMOGLOBIN 12.5 g/dl (12.0-15.5); LYMPH # 3.1 10^3/uL (1.5-5.0); LYMPH % 37.3 % (24.0-44.0); MEAN CORPUSCULAR HEMOGLOBIN 29.1 pg (27.0-33.0); MEAN CORPUSCULAR HGB CONC 31.8 g/dl (32.0-36.5); MEAN CORPUSCULAR VOLUME 91.4 fl (80.0-96.0); MONO # 0.4 10^3/uL (0.0-0.8); MONO % 4.6 % (2.0-8.0); NEUTROPHILS # 4.4 10^3/uL (1.5-8.5); NEUTROPHILS % 53.9 % (36.0-66.0); PLATELET COUNT, AUTOMATED 323 10^3/uL (150-450); WHITE BLOOD COUNT 8.2 10^3/uL (4.0-10.0)
[2022-03-09] MEDS ORDERED: ONDANSETRON 4MG 2ML VIAL IV ONE (15:50)
[2022-03-09 16:11] LABS: RSV AMPLIFICATION NEGATIVE (NEGATIVE)
[2022-03-09 16:18] LABS: ALBUMIN 3.8 GM/DL (3.2-5.2); ALT/SGPT 15 U/L (12-78); BILIRUBIN,DIRECT < 0.1 MG/DL (0.0-0.2); BILIRUBIN,TOTAL 0.2 MG/DL (0.2-1.0); BLOOD UREA NITROGEN 28 MG/DL (7-18); CALCIUM LEVEL 8.9 MG/DL (8.8-10.2); CARBON DIOXIDE LEVEL 23 MEQ/L (21-32); CHLORIDE LEVEL 104 MEQ/L (98-107); CREATININE FOR GFR 1.48 MG/DL (0.55-1.30); GLOMERULAR FILTRATION RATE 36.3 (>39); GLUCOSE, FASTING 127 MG/DL (70-100); POTASSIUM SERUM 3.4 MEQ/L (3.5-5.1); SODIUM LEVEL 140 MEQ/L (136-145); TOTAL PROTEIN 7.5 GM/DL (6.4-8.2)
[2022-03-09 16:37] LABS: FREE T4 1.07 NG/DL (0.76-1.46)
[2022-03-09] MEDS ORDERED: FURO20TA2 PO (17:28)
[2022-03-09] MEDS ORDERED: EUTH50TA PO (17:28)
[2022-03-09] MEDS ORDERED: ALEN70TA82 PO (17:28)
[2022-03-09] MEDS ORDERED: GABA-1171 PO (17:28)
[2022-03-09] MEDS ORDERED: BUSP10TA PO (17:28)
[2022-03-09] MEDS ORDERED: CALC1CAP31 PO (17:28)
[2022-03-09] MEDS ORDERED: COMMENTS (17:29)
[2022-03-09] MEDS ORDERED: HOME MED LIST COMPLETE! XX SCH (17:30)
[2022-03-09] MEDS ORDERED: KCL 20MEQ IN 0.45NS 1000ML 1,000 ML IV SCH (17:45)
[2022-03-09 18:03] LABS: MAGNESIUM LEVEL 1.6 MG/DL (1.8-2.4)
[2022-03-09 18:14] LABS: HEMOGLOBIN A1c 5.8 %
[2022-03-09 18:30] VITALS: BP 139/76
[2022-03-09 20:00] VITALS: BP 117/71
[2022-03-09] MEDS ORDERED: GLUCAGON INJ 1MG VIAL SC PRN (20:25)
[2022-03-09] MEDS ORDERED: DEXTROSE 50% 50 ML SYRINGE IV PRN (20:25)
[2022-03-09] MEDS ORDERED: GLUCOSE 4GM CHEW TABLET PO PRN (20:25)
[2022-03-09] MEDS ORDERED: ATORVASTATIN 20 MG TAB PO SCH (21:00)
[2022-03-09] MEDS ORDERED: GI COCKTAIL 50ML BTL(HYOSCYAMINE/MAALOX/LIDOCAINE VISCOUS)(1:3:1) PO ONE (21:00)
[2022-03-09] MEDS ORDERED: busPIRone 10 MG TAB PO SCH (21:00)
[2022-03-09] MEDS ORDERED: GABAPENTIN 100 MG CAP PO SCH (21:00)
[2022-03-09 21:05] LABS: CK-MB VALUE MASS 6.9 NG/ML (<3.6); MB/CK RELATIVE INDEX 1.88 (< OR =4)
[2022-03-09 21:10] LABS: CALCIUM LEVEL 8.6 MG/DL (8.8-10.2); CREATININE FOR GFR 1.25 MG/DL (0.55-1.30); GLOMERULAR FILTRATION RATE 44.1 (>39); MAGNESIUM LEVEL 1.7 MG/DL (1.8-2.4); POTASSIUM SERUM 3.6 MEQ/L (3.5-5.1)
[2022-03-09] MEDS ORDERED: NITROGLYCERIN 0.4 MG SUBL TABLET SL PRN (21:15)
[2022-03-09] MEDS ORDERED: CLOPIDOGREL 300 MG TAB (PLAVIX) PO STA (21:16)
[2022-03-09] MEDS ORDERED: ASPIRIN 81 MG CHEW TABLET PO ONE (22:00)
[2022-03-09] MEDS ORDERED: HEPARIN SOD (PORCINE) 5000UNITS/ML 1ML VIAL/SYRINGE IV PRN (22:20)
[2022-03-09] MEDS ORDERED: POTASSIUM CHLORIDE 10MEQ SR TABLET PO ONE (23:00)
[2022-03-09] MEDS ORDERED: MAGNESIUM OXIDE 400MG TAB (MAG-OX) PO ONE (23:00)
[2022-03-09] MEDS ORDERED: HEPARIN DRIP 25,000 UNITS in IV 1 EA IV SCH (23:15)
[2022-03-10] VITALS: BP 108/69
[2022-03-10 00:13] LABS: HEMATOCRIT 34.4 % (36.0-47.0); HEMOGLOBIN 11.3 g/dl (12.0-15.5); MEAN CORPUSCULAR HEMOGLOBIN 29.7 pg (27.0-33.0); MEAN CORPUSCULAR HGB CONC 32.8 g/dl (32.0-36.5); MEAN CORPUSCULAR VOLUME 90.3 fl (80.0-96.0); PLATELET COUNT, AUTOMATED 301 10^3/uL (150-450); RED BLOOD COUNT 3.81 10^6/uL (4.00-5.40); WHITE BLOOD COUNT 8.5 10^3/uL (4.0-10.0)
[2022-03-10 00:16] LABS: INR 0.95
[2022-03-10 00:17] LABS: PARTIAL THROMBOPLASTIN TIME 28.3 SECONDS (25.9-37.0)
[2022-03-10 00:19] LABS: D-DIMER QUANT 1331.34 ng/ml (<500)
[2022-03-10 00:47] LABS: CK-MB VALUE MASS 9.4 NG/ML (<3.6); MB/CK RELATIVE INDEX 1.68 (< OR =4)
[2022-03-10] MEDS ORDERED: LEVOTHYROXINE 75MCG TABLET (0.075MG) PO SCH (06:00)
[2022-03-10] MEDS ORDERED: CLOPIDOGREL 75 MG TAB PO SCH (09:00)
[2022-03-10] MEDS ORDERED: ENOXAPARIN 30MG/0.3ML SYRINGE (J1650 PER 10MG) SC SCH (09:00)
== END 2022-03-10 00:59 | disposition short-term general hospital (02) | DRG 312 ==
LOC: M ED 14:56 → EDSEX 14:56 → EDBD 14:56 → M ED INP 17:43 → ENRESERV 18:01 → M PCU 18:24
PROVIDERS: ADMIT Family Medicine; ATTEND Family Medicine
DX: R55 Syncope and collapse (principal); I12.9 Hypertensive chronic kidney disease with stage 1 through stage 4 chronic kidney disease, or unspecified chronic kidney disease; E11.22 Type 2 diabetes mellitus with diabetic chronic kidney disease; E78.5 Hyperlipidemia, unspecified; E03.9 Hypothyroidism, unspecified; N18.32 Chronic kidney disease, stage 3b; Z90.49 Acquired absence of other specified parts of digestive tract; Z96.652 Presence of left artificial knee joint; Z79.890 Hormone replacement therapy; R56.9 Unspecified convulsions; Z20.822 Contact with and (suspected) exposure to COVID-19; R07.89 Other chest pain; Z99.81 Dependence on supplemental oxygen

== ENCOUNTER → 2022-10-01 | Outpatient (REF) | payer MEDICARE, OTHER ==
[~2022-10-01] MED LIST changes: +ALEN70TA82 PO; +BUSP10TA PO; +CALC1CAP31 PO; +COMMENTS; +EUTH50TA PO; +FURO20TA2 PO; +GABA-1171 PO
[2022-10-01 17:53] LABS: BACTERIA, URINE AUTO NEGATIVE (NEGATIVE); RBC, URINE AUTO 0 /HPF (0-3); SQUAMOUS EPITHELIAL CELL UR AU 0 /HPF (0-6); WBC, URINE AUTO 0 /HPF (0-3)
== END ==
LOC: M LAB REF 16:56
PROVIDERS: ATTEND Nurse Practitioner Family
DX: R31.29 Other microscopic hematuria (principal)

== ENCOUNTER → 2022-12-01 | Outpatient (CLI) | payer MEDICARE, OTHER | LOC: M WHC 08:57 | PROVIDERS: ATTEND Nurse Practitioner Family | DX: N18.32 Chronic kidney disease, stage 3b (principal) ==

== ENCOUNTER 2023-10-18 15:09 | Inpatient (IN) | payer MEDICARE, OTHER ==
[~2023-10-18] VITALS: Ht 154.9 cm; Wt 74.3 kg
[~2023-10-18 15:09] MED LIST changes: -ALBU8.5H PO; -AMIO200T49 PO; -BUSP7.5T7 PO; -CEFD300CAP PO; -CITA10TA7 PO; -ELIQ5TAB PO; -FLUT1INH2 INH; -GLIP2.5T6 PO; -LEVO88TA24 PO; -MELO15TA28 PO; -METF-838 PO; -OMEP40CA5 PO; -POTA-150 PO; -RISATAB3 PO; -SERT25TA21 PO
[2023-10-18] MEDS: ONDANSETRON 4MG 2ML VIAL IV ONE (17:50)
[2023-10-18] MEDS: NS 1,000 ML IV ONE (17:50)
[2023-10-18 18:35] LABS: BASO % 0.2 % (0.0-1.0); HEMATOCRIT 37.7 % (36.0-47.0); HEMOGLOBIN 12.4 g/dl (12.0-15.5); LYMPH # 0.5 10^3/uL (1.5-5.0); LYMPH % 4.5 % (24.0-44.0); MEAN CORPUSCULAR HEMOGLOBIN 29.2 pg (27.0-33.0); MEAN CORPUSCULAR HGB CONC 32.9 g/dl (32.0-36.5); MEAN CORPUSCULAR VOLUME 88.7 fl (80.0-96.0); MONO # 0.5 10^3/uL (0.0-0.8); MONO % 4.7 % (2.0-8.0); NEUTROPHILS # 10.3 10^3/uL (1.5-8.5); NEUTROPHILS % 90.1 % (36.0-66.0); PLATELET COUNT, AUTOMATED 133 10^3/uL (150-450); RED BLOOD COUNT 4.25 10^6/uL (4.00-5.40); WHITE BLOOD COUNT 11.4 10^3/uL (4.0-10.0)
[2023-10-18 18:47] LABS: INR 1.46; PARTIAL THROMBOPLASTIN TIME 35.7 SECONDS (24.8-34.2); PROTHROMBIN TIME 17.2 SECONDS (12.5-14.5)
[2023-10-18 19:03] LABS: ALBUMIN 2.8 G/DL (3.2-5.2); BILIRUBIN,DIRECT 0.6 MG/DL (<0.4); BILIRUBIN,TOTAL 1.5 MG/DL (0.3-1.2); CALCIUM LEVEL 7.5 MG/DL (8.3-10.6); CREATININE FOR GFR 1.82 MG/DL (0.55-1.30); GLOMERULAR FILTRATION RATE 28.5 (>32); POTASSIUM SERUM 4.1 MMOL/L (3.5-5.1); TOTAL PROTEIN 6.2 G/DL (5.7-8.2)
[2023-10-18] MEDS: cefTRIAXone SOD 1 GM in D5W MINI-BAG PLUS 50 ML IV ONE (22:17)
[2023-10-18] MEDS ORDERED: MED REC IN PROGRESS XX SCH (22:45)
[2023-10-18] MEDS ORDERED: GLUCOSE 4GM CHEW TABLET PO PRN (23:20)
[2023-10-18] MEDS ORDERED: ONDANSETRON 4MG 2ML VIAL IV PRN (23:20)
[2023-10-18] MEDS ORDERED: GLUCAGON INJ 1MG VIAL SC PRN (23:20)
[2023-10-18] MEDS ORDERED: DEXTROSE 50% 50ML SYRINGE IV PRN (23:20)
[2023-10-19] MEDS ORDERED: CITA10TA7 PO (00:28)
[2023-10-19] MEDS ORDERED: BUSP7.5T7 PO (00:28)
[2023-10-19] MEDS ORDERED: SIMV40TA20 PO (00:28)
[2023-10-19] MEDS ORDERED: METF-838 PO (00:28)
[2023-10-19] MEDS ORDERED: FLUT1INH2 INH (00:28)
[2023-10-19] MEDS ORDERED: ELIQ5TAB PO (00:28)
[2023-10-19] MEDS ORDERED: POTA-150 PO (00:28)
[2023-10-19] MEDS ORDERED: ALBU8.5H PO (00:28)
[2023-10-19] MEDS ORDERED: HOME MED LIST COMPLETE! XX SCH (00:30)
[2023-10-19 01:38] VITALS: BP 180/84; TEMP 102.8; O2SAT 94
[2023-10-19] MEDS: NS 1,000 ML IV SCH (01:56)
[2023-10-19] MEDS: ACETAMINOPHEN TAB 650MG DOSE (2X325MG) PO PRN (02:01)
[2023-10-19] MEDS: hydrALAZINE 20MG/ML 1ML VIAL IV PRN (02:55)
[2023-10-19 03:00] VITALS: BP 144/62; TEMP 101.6; O2SAT 94
[2023-10-19 06:20] LABS: CALCIUM LEVEL 6.7 MG/DL (8.3-10.6); CREATININE FOR GFR 1.77 MG/DL (0.55-1.30); GLOMERULAR FILTRATION RATE 29.4 (>32); POTASSIUM SERUM 3.7 MMOL/L (3.5-5.1)
[2023-10-19] MEDS ORDERED: ALBUTEROL 90 MCG/ACT 8GM HFA INHALER INH PRN (07:05)
[2023-10-19] MEDS: INSULIN LISPRO (NovoLOG) PER UNIT SC SCH ×3 (07:30→20:47)
[2023-10-19] MEDS ORDERED: PILL CUTTER 1 EACH XX PRN (07:35)
[2023-10-19 07:38] LABS: MAGNESIUM LEVEL 1.5 MG/DL (1.8-2.4)
[2023-10-19 07:40] LABS: BASO % 0.2 % (0.0-1.0); EOS % 0.1 % (0.0-3.0); HEMATOCRIT 33.2 % (36.0-47.0); HEMOGLOBIN 10.6 g/dl (12.0-15.5); LYMPH # 0.7 10^3/uL (1.5-5.0); LYMPH % 6.3 % (24.0-44.0); MEAN CORPUSCULAR HEMOGLOBIN 28.7 pg (27.0-33.0); MEAN CORPUSCULAR HGB CONC 31.9 g/dl (32.0-36.5); MONO # 0.9 10^3/uL (0.0-0.8); MONO % 8.1 % (2.0-8.0); NEUTROPHILS # 9.3 10^3/uL (1.5-8.5); NEUTROPHILS % 84.8 % (36.0-66.0); PLATELET COUNT, AUTOMATED 123 10^3/uL (150-450); RED BLOOD COUNT 3.69 10^6/uL (4.00-5.40); WHITE BLOOD COUNT 10.9 10^3/uL (4.0-10.0)
[2023-10-19] MEDS: LEVOTHYROXINE 50MCG TABLET (0.05MG) PO SCH (07:47)
[2023-10-19 08:05] VITALS: BP 112/58; TEMP 97.8; O2SAT 97
[2023-10-19] MEDS: ADVAIR HFA 115/21MCG INHALER INH SCH (08:49)
[2023-10-19] MEDS ORDERED: CitaloPRAM (CeleXA) 10 MG TABLET PO SCH (09:00)
[2023-10-19] MEDS: FERROUS SULFATE 325MG TAB PO SCH (09:10)
[2023-10-19] MEDS: METOPROLOL SUCC (TopROL XL) 50MG **XL** TAB PO SCH (09:10)
[2023-10-19] MEDS: CALCIUM/VITAMIN D 500 MG TAB PO SCH (09:10)
[2023-10-19] MEDS: CALCITRIOL 0.25 MCG CAP (S0169) PO SCH (09:10)
[2023-10-19] MEDS: busPIRone 5 MG TAB PO SCH (09:11)
[2023-10-19] MEDS: HEPARIN SOD (PORCINE) 5000UNITS/ML 1ML VIAL/SYRINGE SC SCH (09:11)
[2023-10-19] MEDS: MAG SULF 1GM/100ML (MAG RUN) 1 GM in IV 1 EA IV SCH (10:26)
[2023-10-19] MEDS: APIXABAN 5 MG TAB (ELIQUIS) PO SCH (11:59)
[2023-10-19 12:16] VITALS: BP 149/67; TEMP 99; O2SAT 92
[2023-10-19] MEDS ORDERED: OMEP40CA5 PO (15:37)
[2023-10-19] MEDS ORDERED: AMIO200T49 PO (15:37)
[2023-10-19] MEDS ORDERED: GLIP2.5T6 PO (15:37)
[2023-10-19] MEDS ORDERED: LEVO88TA24 PO (15:37)
[2023-10-19] MEDS ORDERED: MELO15TA28 PO (15:37)
[2023-10-19] MEDS ORDERED: SERT25TA21 PO (15:40)
[2023-10-19 16:32] VITALS: BP 159/76; TEMP 99.3; O2SAT 94
[2023-10-19] MEDS ORDERED: METOCLOPRAMIDE INJ 10MG/2ML VIAL IV PRN (18:20)
[2023-10-19 18:57] VITALS: BP 158/58; TEMP 99.7; O2SAT 91
[2023-10-19] MEDS: SIMVASTATIN 40 MG TAB PO SCH (20:46)
[2023-10-19] MEDS: AMIODARONE 200 MG TAB (PACERONE) PO SCH (20:46)
[2023-10-19] MEDS ORDERED: cefTRIAXone SOD 1 GM in D5W MINI-BAG PLUS 50 ML IV SCH (22:00)
[2023-10-19] MEDS: cefTRIAXone SOD 2 GM in D5W MINI-BAG PLUS 50 ML IV SCH (23:01)
[2023-10-20] VITALS (8 sets, daily range): BP systolic 144–167; BP diastolic 68–75; TEMP 98–99.5; O2SAT 92–94
[2023-10-20 06:31] LABS: BASO % 0.2 % (0.0-1.0); EOS # 0.1 10^3/uL (0.0-0.5); EOS % 0.6 % (0.0-3.0); HEMATOCRIT 31.4 % (36.0-47.0); HEMOGLOBIN 10.1 g/dl (12.0-15.5); LYMPH # 0.5 10^3/uL (1.5-5.0); MEAN CORPUSCULAR HEMOGLOBIN 28.9 pg (27.0-33.0); MEAN CORPUSCULAR HGB CONC 32.2 g/dl (32.0-36.5); MONO # 0.9 10^3/uL (0.0-0.8); MONO % 8.3 % (2.0-8.0); NEUTROPHILS # 9.2 10^3/uL (1.5-8.5); NEUTROPHILS % 84.7 % (36.0-66.0); PLATELET COUNT, AUTOMATED 133 10^3/uL (150-450); RED BLOOD COUNT 3.49 10^6/uL (4.00-5.40); WHITE BLOOD COUNT 10.9 10^3/uL (4.0-10.0)
[2023-10-20] MEDS: LEVOTHYROXINE 88MCG TABLET (0.088 MG) PO SCH (06:36)
[2023-10-20 07:02] LABS: CALCIUM LEVEL 7.1 MG/DL (8.3-10.6); CREATININE FOR GFR 1.5 MG/DL (0.55-1.30); GLOMERULAR FILTRATION RATE 35.6 (>32); MAGNESIUM LEVEL 2.4 MG/DL (1.8-2.4); POTASSIUM SERUM 3.4 MMOL/L (3.5-5.1)
[2023-10-20] MEDS: LACTOBACILLUS ACIDOPHILUS CAP (BACID) PO SCH (08:15)
[2023-10-20] MEDS: OMEPRAZOLE 20MG CAP PO SCH (08:15)
[2023-10-20] MEDS ORDERED: RISATAB3 PO (08:18)
[2023-10-20] MEDS ORDERED: CEFD300CAP PO (08:18)
[2023-10-20] MEDS ORDERED: FURO20TA2 PO (08:18)
[2023-10-20] MEDS: CALCIUM/VITAMIN D 500 MG TAB PO SCH (09:10)
[2023-10-20] MEDS: CEFDINIR 300 MG CAP (OMNICEF) PO SCH (09:10)
[2023-10-20] MEDS: POTASSIUM CHLORIDE 10MEQ SR TABLET PO ONE (09:10)
== END 2023-10-20 14:06 | disposition home or self-care (01) | DRG 872 ==
LOC: M ED 15:09 → M ED INP 23:20 → ENRESERV 10-19 01:07 → M PCU 10-19 01:34
PROVIDERS: ADMIT Internal Medicine; ATTEND Internal Medicine
DX: A41.50 Gram-negative sepsis, unspecified (principal); N13.6 Pyonephrosis; N17.9 Acute kidney failure, unspecified; N10 Acute pyelonephritis; N39.0 Urinary tract infection, site not specified; I50.22 Chronic systolic (congestive) heart failure; I13.0 Hypertensive heart and chronic kidney disease with heart failure and stage 1 through stage 4 chronic kidney disease, or unspecified chronic kidney disease; N18.30 Chronic kidney disease, stage 3 unspecified; E11.22 Type 2 diabetes mellitus with diabetic chronic kidney disease; I48.91 Unspecified atrial fibrillation; E03.9 Hypothyroidism, unspecified; J45.909 Unspecified asthma, uncomplicated; K21.9 Gastro-esophageal reflux disease without esophagitis; G47.33 Obstructive sleep apnea (adult) (pediatric); F41.9 Anxiety disorder, unspecified; D50.9 Iron deficiency anemia, unspecified; B96.20 Unspecified Escherichia coli [E. coli] as the cause of diseases classified elsewhere; Z79.01 Long term (current) use of anticoagulants; Z79.899 Other long term (current) drug therapy; Z96.652 Presence of left artificial knee joint; K57.90 Diverticulosis of intestine, part unspecified, without perforation or abscess without bleeding; Z66 Do not resuscitate

== ENCOUNTER → 2023-10-18 | Outpatient (REF) | payer MEDICARE, OTHER ==
[~2023-10-18] MED LIST changes: +ALBU8.5H PO; +AMIO200T49 PO; +BUSP7.5T7 PO; +CEFD300CAP PO; +CITA10TA7 PO; +ELIQ5TAB PO; +FLUT1INH2 INH; +GLIP2.5T6 PO; +LEVO88TA24 PO; +MELO15TA28 PO; +METF-838 PO; +OMEP40CA5 PO; +POTA-150 PO; +RISATAB3 PO; +SERT25TA21 PO
== END ==
LOC: M WUC 18:24
PROVIDERS: ATTEND Registered Nurse
DX: N39.0 Urinary tract infection, site not specified (principal)

== ENCOUNTER → 2023-10-18 | Outpatient (CLI) | payer MEDICARE, OTHER ==
[2023-10-18 13:11] LABS: BASO % 0.2 % (0.0-1.0); HEMOGLOBIN 12.8 g/dl (12.0-15.5); LYMPH # 0.5 10^3/uL (1.5-5.0); LYMPH % 4.2 % (24.0-44.0); MEAN CORPUSCULAR HEMOGLOBIN 29.2 pg (27.0-33.0); MEAN CORPUSCULAR HGB CONC 32.8 g/dl (32.0-36.5); MEAN CORPUSCULAR VOLUME 88.8 fl (80.0-96.0); MONO # 0.6 10^3/uL (0.0-0.8); MONO % 4.6 % (2.0-8.0); NEUTROPHILS # 10.8 10^3/uL (1.5-8.5); NEUTROPHILS % 90.5 % (36.0-66.0); PLATELET COUNT, AUTOMATED 136 10^3/uL (150-450); RED BLOOD COUNT 4.39 10^6/uL (4.00-5.40)
[2023-10-18 13:41] LABS: ALBUMIN 2.7 G/DL (3.2-5.2); BILIRUBIN,TOTAL 1.8 MG/DL (0.3-1.2); CALCIUM LEVEL 7.8 MG/DL (8.3-10.6); CREATININE FOR GFR 1.93 MG/DL (0.55-1.30); GLOMERULAR FILTRATION RATE 26.6 (>32); POTASSIUM SERUM 3.7 MMOL/L (3.5-5.1); TOTAL PROTEIN 6.3 G/DL (5.7-8.2)
== END ==
LOC: M LAB 12:44
PROVIDERS: ATTEND Registered Nurse
DX: N39.0 Urinary tract infection, site not specified (principal)

== ENCOUNTER → 2023-11-06 | Outpatient (REF) | payer MEDICARE, OTHER ==
[~2023-11-06] MED LIST changes: +ALBU8.5H PO; +AMIO200T49 PO; +BUSP7.5T7 PO; +CEFD300CAP PO; +CITA10TA7 PO; +ELIQ5TAB PO; +FLUT1INH2 INH; +GLIP2.5T6 PO; +LEVO88TA24 PO; +MELO15TA28 PO; +METF-838 PO; +OMEP40CA5 PO; +POTA-150 PO; +RISATAB3 PO; +SERT25TA21 PO
[2023-11-06 18:13] LABS: APPEARANCE, URINE CLEAR (CLEAR); BACTERIA, URINE AUTO NEGATIVE (NEGATIVE); BILIRUBIN, URINE AUTO NEGATIVE (NEGATIVE); BLOOD, URINE BLOOD NEGATIVE (NEGATIVE); COLOR, URINE STRAW (YELLOW); GLUCOSE, URINE (UA) AUTO NEGATIVE (NEGATIVE); KETONE, URINE AUTO NEGATIVE (NEGATIVE); LEUKOCYTE ESTERASE, URINE AUTO TRACE (NEGATIVE); NITRITE, URINE AUTO NEGATIVE (NEGATIVE); PROTEIN, URINE AUTO NEGATIVE (NEGATIVE); RBC, URINE AUTO 0 /HPF (0-3); SPECIFIC GRAVITY URINE AUTO 1.005 (1.002-1.035); SQUAMOUS EPITHELIAL CELL UR AU 0 /HPF (0-6); UROBILINOGEN, URINE AUTO 0.2 mg/dL (0.0-2.0); WBC, URINE AUTO 2 /HPF (0-3)
== END ==
LOC: M LABSMT 14:16
PROVIDERS: ATTEND Urology
DX: N10 Acute pyelonephritis (principal)

== ENCOUNTER 2023-11-22 08:42 | Inpatient (IN) | payer MEDICARE, OTHER ==
[2023-11-22] VITALS (8 sets, daily range): BP systolic 116–154; BP diastolic 57–68; TEMP 97.3–98; O2SAT 87–96
[~2023-11-22] VITALS: Ht 154.9 cm; Wt 71.2 kg
[2023-11-22] MEDS: LIDOCAINE 2% 5ML JELLY UROJET TOP ONE (09:20)
[2023-11-22] MEDS: ALBUTEROL SULFATE 2.5MG/0.5ML INH NEB SOLN INH ONE (09:21)
[2023-11-22] MEDS: IPRATROPIUM 0.5MG/ALBUTEROL 2.5MG INH SOL UD 3ML (DUONEB) NEB ONE (09:21)
[2023-11-22] MEDS: methylPREDNISolone 125MG 2ML VIAL IV ONE (09:31)
[2023-11-22 09:38] LABS: BASO % 0.2 % (0.0-1.0); HEMATOCRIT 35.7 % (36.0-47.0); HEMOGLOBIN 11.6 g/dl (12.0-15.5); LYMPH # 0.5 10^3/uL (1.5-5.0); LYMPH % 3.3 % (24.0-44.0); MEAN CORPUSCULAR HEMOGLOBIN 28.8 pg (27.0-33.0); MEAN CORPUSCULAR HGB CONC 32.5 g/dl (32.0-36.5); MEAN CORPUSCULAR VOLUME 88.6 fl (80.0-96.0); MONO % 6.5 % (2.0-8.0); NEUTROPHILS # 14.4 10^3/uL (1.5-8.5); NEUTROPHILS % 89.2 % (36.0-66.0); PLATELET COUNT, AUTOMATED 277 10^3/uL (150-450); RED BLOOD COUNT 4.03 10^6/uL (4.00-5.40); WHITE BLOOD COUNT 16.1 10^3/uL (4.0-10.0)
[2023-11-22 09:38] LABS: ABG BASE EXCESS 3.1 (-2.0-2.0); ABG HCO3 27.3 MMOL/L (22.0-26.0); ABG O2 SATURATION 95.2 % (95.0-99.0); ABG PARTIAL PRESSURE CO2 40.4 mmHg (35.0-45.0); ABG PARTIAL PRESSURE O2 70.4 mmHg (75.0-100.0); ABG STANDARD HCO3 27.2 MMOL/L. (22.0-26.0); ABG TOTAL CO2 28.6 MMOL/L (23.0-31.0); ABG pH (ARTERIAL) 7.448 UNITS (7.350-7.450)
[2023-11-22] MEDS: ACETAMINOPHEN TAB 650MG DOSE (2X325MG) PO ONE (09:59)
[2023-11-22 10:01] LABS: CPK CREATINE PHOSPHOKINASE 79 U/L (34-145)
[2023-11-22 10:04] LABS: ALBUMIN 3.1 G/DL (3.2-5.2); ALKALINE PHOSPHATASE 79 U/L (46-116); ALT/SGPT 14 U/L (7.0-40); AST/SGOT 19 U/L (<34); BILIRUBIN,DIRECT 0.4 MG/DL (<0.4); BLOOD UREA NITROGEN 27 MG/DL (9-23); CALCIUM LEVEL 8.4 MG/DL (8.3-10.6); CARBON DIOXIDE LEVEL 29 MMOL/L (20-31); CHLORIDE LEVEL 103 MMOL/L (98-107); CK-MB VALUE MASS < 1.0 NG/ML (<3.6); CREATININE FOR GFR 1.56 MG/DL (0.55-1.30); GLUCOSE, FASTING 166 MG/DL (74-106); MB/CK RELATIVE INDEX 1.26 (< OR =4); POTASSIUM SERUM 3.6 MMOL/L (3.5-5.1); SODIUM LEVEL 140 MMOL/L (136-145); THYROID STIMULATING HORMONE 2.938 uIU/ML (0.55-4.78); THYROXINE (T4) 13.1 UG/DL (4.5-10.9); TOTAL PROTEIN 6.7 G/DL (5.7-8.2)
[2023-11-22 10:48] LABS: CK-MB VALUE MASS < 1.0 NG/ML (<3.6)
[2023-11-22 10:49] LABS: CPK CREATINE PHOSPHOKINASE 73 U/L (34-145); MB/CK RELATIVE INDEX 1.36 (< OR =4)
[2023-11-22] MEDS ORDERED: ISOVUE-370 76% 100ML VIAL As Ordered ONE (10:57)
[2023-11-22] MEDS: cefTRIAXone SOD 1 GM in D5W MINI-BAG PLUS 50 ML IV ONE (11:02)
[2023-11-22] MEDS ORDERED: GLUCAGON INJ 1MG VIAL SC PRN (14:25)
[2023-11-22] MEDS ORDERED: GLUCOSE 4 GM CHEW PO PRN (14:25)
[2023-11-22] MEDS ORDERED: IPRATROPIUM 0.5MG/ALBUTEROL 2.5MG INH SOL UD 3ML (DUONEB) NEB PRN (14:25)
[2023-11-22] MEDS ORDERED: DEXTROSE 50% 50ML SYRINGE IV PRN (14:25)
[2023-11-22 14:40] LABS: MAGNESIUM LEVEL 1.5 MG/DL (1.8-2.4)
[2023-11-22 14:49] LABS: PROCALCITONIN 0.56 ng/ml
[2023-11-22] MEDS: POTASSIUM CHLORIDE 10MEQ SR TABLET PO ONE (14:57)
[2023-11-22] MEDS: MAG SULF 1GM/100ML (MAG RUN) 1 GM in IV 1 EA IV SCH (14:57)
[2023-11-22] MEDS ORDERED: MAGN400T2 PO (15:04)
[2023-11-22] MEDS ORDERED: L. A1TAB6 PO (15:04)
[2023-11-22] MEDS ORDERED: HOME MED LIST COMPLETE! XX SCH (15:05)
[2023-11-22] MEDS: LR 1,000 ML IV SCH (15:59)
[2023-11-22] MEDS ORDERED: PILL CUTTER 1 EACH XX PRN (17:40)
[2023-11-22] MEDS: OMEPRAZOLE 20MG CAP PO SCH (17:41)
[2023-11-22] MEDS: INSULIN LISPRO (NovoLOG) PER UNIT SC SCH ×2 (17:55→21:00)
[2023-11-22] MEDS: SERTRALINE HCL 25 MG TABLET PO SCH (17:57)
[2023-11-22] MEDS: METOPROLOL SUCC (TopROL XL) 50MG **XL** TAB PO SCH (17:57)
[2023-11-22] MEDS: MAGNESIUM OXIDE 400MG TAB (MAG-OX) PO SCH (17:57)
[2023-11-22] MEDS: IPRATROPIUM 0.5MG/ALBUTEROL 2.5MG INH SOL UD 3ML (DUONEB) NEB SCH (19:34)
[2023-11-22] MEDS: SYMBICORT 160/4.5MCG INHALER 6GM INH SCH (19:34)
[2023-11-22] MEDS: GABAPENTIN 100 MG CAP PO SCH (21:08)
[2023-11-22] MEDS: SIMVASTATIN 40 MG TAB PO SCH (21:08)
[2023-11-22] MEDS: APIXABAN 5 MG TAB (ELIQUIS) PO SCH (21:09)
[2023-11-22] MEDS: busPIRone 5 MG TAB PO SCH (21:09)
[2023-11-23] VITALS (17 sets, daily range): BP systolic 122–165; BP diastolic 61–72; TEMP 97.6–98.1; O2SAT 92–96
[2023-11-23] MEDS: LEVOTHYROXINE 88MCG TABLET (0.088 MG) PO SCH (05:42)
[2023-11-23 07:30] LABS: HEMATOCRIT 32.2 % (36.0-47.0); HEMOGLOBIN 10.3 g/dl (12.0-15.5); MEAN CORPUSCULAR HEMOGLOBIN 28.1 pg (27.0-33.0); MEAN CORPUSCULAR VOLUME 87.7 fl (80.0-96.0); PLATELET COUNT, AUTOMATED 291 10^3/uL (150-450); RED BLOOD COUNT 3.67 10^6/uL (4.00-5.40); WHITE BLOOD COUNT 21.4 10^3/uL (4.0-10.0)
[2023-11-23 07:48] LABS: CALCIUM LEVEL 8.1 MG/DL (8.3-10.6); CREATININE FOR GFR 1.55 MG/DL (0.55-1.30); GLOMERULAR FILTRATION RATE 34.2 (>32); MAGNESIUM LEVEL 2.5 MG/DL (1.8-2.4); POTASSIUM SERUM 4.2 MMOL/L (3.5-5.1)
[2023-11-23] MEDS: cefTRIAXone SOD 2 GM in D5W MINI-BAG PLUS 50 ML IV SCH (08:23)
[2023-11-23] MEDS: predniSONE 20 MG TAB PO SCH (08:23)
[2023-11-23] MEDS: FERROUS SULFATE 325MG TAB PO SCH (08:24)
[2023-11-23] MEDS: AMIODARONE 200 MG TAB (PACERONE) PO SCH (08:24)
[2023-11-24] VITALS (7 sets, daily range): BP systolic 150–172; BP diastolic 65–74; TEMP 96.9–97.1; O2SAT 93–96
[2023-11-24 06:18] LABS: BASO % 0.1 % (0.0-1.0); HEMATOCRIT 31.7 % (36.0-47.0); HEMOGLOBIN 10.1 g/dl (12.0-15.5); LYMPH # 1.2 10^3/uL (1.5-5.0); LYMPH % 6.8 % (24.0-44.0); MEAN CORPUSCULAR HEMOGLOBIN 28.1 pg (27.0-33.0); MEAN CORPUSCULAR HGB CONC 31.9 g/dl (32.0-36.5); MEAN CORPUSCULAR VOLUME 88.1 fl (80.0-96.0); MONO # 0.8 10^3/uL (0.0-0.8); MONO % 4.5 % (2.0-8.0); NEUTROPHILS # 15.6 10^3/uL (1.5-8.5); NEUTROPHILS % 87.5 % (36.0-66.0); PLATELET COUNT, AUTOMATED 314 10^3/uL (150-450); WHITE BLOOD COUNT 17.9 10^3/uL (4.0-10.0)
[2023-11-24 06:50] LABS: ALBUMIN 2.6 G/DL (3.2-5.2); BILIRUBIN,TOTAL 0.2 MG/DL (0.3-1.2); CALCIUM LEVEL 8.2 MG/DL (8.3-10.6); CREATININE FOR GFR 1.42 MG/DL (0.55-1.30); GLOMERULAR FILTRATION RATE 37.9 (>32); POTASSIUM SERUM 4.3 MMOL/L (3.5-5.1); TOTAL PROTEIN 5.8 G/DL (5.7-8.2)
[2023-11-24] MEDS ORDERED: PRED10TA2 PO (10:06)
[2023-11-24] MEDS ORDERED: CEFD1CAP9 PO (10:06)
[2023-11-24] MEDS ORDERED: AMIO200T49 PO (10:06)
== END 2023-11-24 12:40 | disposition home health service (06) | DRG 189 ==
LOC: EDBD 08:42 → M ED 10:22 → M ED INP 14:18 → M PCU 15:20
PROVIDERS: ADMIT Internal Medicine; ATTEND Internal Medicine
DX: J96.21 Acute and chronic respiratory failure with hypoxia (principal); I50.22 Chronic systolic (congestive) heart failure; J44.1 Chronic obstructive pulmonary disease with (acute) exacerbation; N17.9 Acute kidney failure, unspecified; N12 Tubulo-interstitial nephritis, not specified as acute or chronic; Z66 Do not resuscitate; B96.20 Unspecified Escherichia coli [E. coli] as the cause of diseases classified elsewhere; I48.91 Unspecified atrial fibrillation; F39 Unspecified mood [affective] disorder; E11.9 Type 2 diabetes mellitus without complications; K21.9 Gastro-esophageal reflux disease without esophagitis; D50.9 Iron deficiency anemia, unspecified; E03.9 Hypothyroidism, unspecified; E78.5 Hyperlipidemia, unspecified; E83.42 Hypomagnesemia; Z95.810 Presence of automatic (implantable) cardiac defibrillator; Z99.81 Dependence on supplemental oxygen; Z87.891 Personal history of nicotine dependence; Z79.01 Long term (current) use of anticoagulants; Z79.84 Long term (current) use of oral hypoglycemic drugs; Z79.899 Other long term (current) drug therapy

== ENCOUNTER 2024-03-22 14:44 | Inpatient (IN) | payer MEDICARE, OTHER ==
[~2024-03-22] VITALS: Ht 154.9 cm; Wt 80.3 kg
[~2024-03-22 14:44] MED LIST changes: +ALBU8.5H INH; -ALBU8.5H PO; +CEFD1CAP9 PO; +L. A1TAB6 PO; +MAGN400T2 PO; +PRED10TA2 PO
[2024-03-22 16:03] LABS: BASO % 0.1 % (0.0-1.0); EOS % 0.6 % (0.0-3.0); HEMATOCRIT 39.4 % (36.0-47.0); HEMOGLOBIN 12.4 g/dl (12.0-15.5); LYMPH # 0.8 10^3/uL (1.5-5.0); LYMPH % 11.2 % (24.0-44.0); MEAN CORPUSCULAR HEMOGLOBIN 28.1 pg (27.0-33.0); MEAN CORPUSCULAR HGB CONC 31.5 g/dl (32.0-36.5); MEAN CORPUSCULAR VOLUME 89.1 fl (80.0-96.0); MONO # 0.2 10^3/uL (0.0-0.8); MONO % 3.2 % (2.0-8.0); NEUTROPHILS # 5.8 10^3/uL (1.5-8.5); NEUTROPHILS % 84.5 % (36.0-66.0); PLATELET COUNT, AUTOMATED 206 10^3/uL (150-450); RED BLOOD COUNT 4.42 10^6/uL (4.00-5.40); WHITE BLOOD COUNT 6.9 10^3/uL (4.0-10.0)
[2024-03-22 16:26] LABS: BILIRUBIN,DIRECT 0.2 MG/DL (<0.4); BILIRUBIN,TOTAL 0.8 MG/DL (0.3-1.2); CALCIUM LEVEL 8.8 MG/DL (8.3-10.6); CREATININE FOR GFR 1.78 MG/DL (0.55-1.30); GLOMERULAR FILTRATION RATE 29.2 (>32); TOTAL PROTEIN 7.2 G/DL (5.7-8.2)
[2024-03-22] MEDS: ONDANSETRON 4MG 2ML VIAL IV ONE (21:27)
[2024-03-22] MEDS: hydrALAZINE 20MG/ML 1ML VIAL IV ONE (21:27)
[2024-03-22] MEDS: MORPHINE 4 MG/ML 1ML VIAL IV ONE (21:28)
[2024-03-22] MEDS: NS 1,000 ML IV SCH (21:34)
[2024-03-22 21:41] LABS: CK-MB VALUE MASS 2.9 NG/ML (<3.6)
[2024-03-22 21:42] LABS: MB/CK RELATIVE INDEX 0.85 (< OR =4)
[2024-03-22 21:57] LABS: CK-MB VALUE MASS 3.4 NG/ML (<3.6)
[2024-03-22 21:58] LABS: MB/CK RELATIVE INDEX 0.85 (< OR =4)
[2024-03-23] VITALS (51 sets, daily range): BP systolic 80–190; BP diastolic 45–95; TEMP 97.6–98.6; O2SAT 91–100
[2024-03-23] MEDS: ERTAPENEM SODIUM 1 GM in NS MINI-BAG PLUS 50 ML IV ONE
[2024-03-23] MEDS: INSULIN LISPRO (NovoLOG) PER UNIT SC SCH
[2024-03-23] MEDS ORDERED: hydrALAZINE 20MG/ML 1ML VIAL IV PRN (00:35)
[2024-03-23] MEDS ORDERED: DEXTROSE 50% 50ML SYRINGE IV PRN (00:35)
[2024-03-23] MEDS ORDERED: GLUCOSE 4 GM CHEW PO PRN (00:35)
[2024-03-23] MEDS ORDERED: GLUCAGON INJ 1MG VIAL SC PRN (00:35)
[2024-03-23] MEDS ORDERED: propofoL 200 MG/20 ML VIAL As Ordered ONE (00:36)
[2024-03-23] MEDS ORDERED: ROCURONIUM BROMIDE 50MG/5ML VIAL As Ordered ONE (00:36)
[2024-03-23] MEDS ORDERED: LIDOCAINE 2% INJ 100 MG/5 ML SYRINGE As Ordered ONE (00:36)
[2024-03-23] MEDS ORDERED: fentaNYL 100 MCG/2 ML INJECTION As Ordered ONE (00:38)
[2024-03-23] MEDS ORDERED: SUCCINYLCHOLINE 100MG/5ML SYRINGE As Ordered ONE (01:04)
[2024-03-23] MEDS ORDERED: LIDOCAINE 2% 100MG/5ML SDV (FOR ANES.) As Ordered ONE (01:04)
[2024-03-23] MEDS ORDERED: ACETAMINOPHEN 1000MG 100ML IV BAG As Ordered ONE (01:12)
[2024-03-23] MEDS: IPRATROPIUM 0.5MG/ALBUTEROL 2.5MG INH SOL UD 3ML (DUONEB) NEB SCH (02:00)
[2024-03-23] MEDS: FACTOR XA,INACTIVATED-ZHZO 400 MG in APPROPRIATE DILUENT 40 ML IV ONE (02:11)
[2024-03-23] MEDS ORDERED: HYDROmorphone HCL 2MG/ML 1ML VIAL As Ordered ONE (02:18)
[2024-03-23] MEDS: FACTOR XA,INACTIVATED-ZHZO 480 MG in APPROPRIATE DILUENT 48 ML IV ONE (02:33)
[2024-03-23] MEDS ORDERED: ONDANSETRON 4MG 2ML VIAL As Ordered ONE (02:52)
[2024-03-23] MEDS ORDERED: FENTANYL DRIP LOCK BOX KEY 1 EACH XX PRN (03:45)
[2024-03-23] MEDS: propofoL 1,000 MG in IV 1 EA IV SCH (04:08)
[2024-03-23] MEDS: NS 1,000 ML IV SCH (04:08)
[2024-03-23] MEDS: fentaNYL CITRATE/NaCl 1,000 MCG in IV 1 EA IV SCH (04:57)
[2024-03-23] MEDS: PIPERACILLIN/TAZOBACTAM SOD 3.375 GM in D5W MINI-BAG PLUS 50 ML IV SCH (06:06)
[2024-03-23 06:14] LABS: ABG BASE EXCESS 3.1 (-2.0-2.0); ABG HCO3 25.3 MMOL/L (22.0-26.0); ABG O2 SATURATION 94.4 % (95.0-99.0); ABG PARTIAL PRESSURE CO2 30.7 mmHg (35.0-45.0); ABG PARTIAL PRESSURE O2 61.8 mmHg (75.0-100.0); ABG STANDARD HCO3 27.2 MMOL/L. (22.0-26.0); ABG TOTAL CO2 26.3 MMOL/L (23.0-31.0); ABG pH (ARTERIAL) 7.534 UNITS (7.350-7.450)
[2024-03-23 06:16] LABS: PROTHROMBIN TIME 12.9 SECONDS (12.5-14.5)
[2024-03-23 06:55] LABS: EOS % 0.3 % (0.0-3.0); HEMATOCRIT 34.3 % (36.0-47.0); HEMOGLOBIN 11.1 g/dl (12.0-15.5); LYMPH # 0.5 10^3/uL (1.5-5.0); LYMPH % 6.7 % (24.0-44.0); MEAN CORPUSCULAR HGB CONC 32.4 g/dl (32.0-36.5); MEAN CORPUSCULAR VOLUME 86.4 fl (80.0-96.0); MONO # 0.3 10^3/uL (0.0-0.8); MONO % 3.7 % (2.0-8.0); NEUTROPHILS # 6.3 10^3/uL (1.5-8.5); NEUTROPHILS % 88.7 % (36.0-66.0); PLATELET COUNT, AUTOMATED 176 10^3/uL (150-450); RED BLOOD COUNT 3.97 10^6/uL (4.00-5.40); WHITE BLOOD COUNT 7.1 10^3/uL (4.0-10.0)
[2024-03-23 07:06] LABS: CALCIUM LEVEL 7.6 MG/DL (8.3-10.6); CREATININE FOR GFR 1.28 MG/DL (0.55-1.30); GLOMERULAR FILTRATION RATE 42.7 (>32); POTASSIUM SERUM 3.7 MMOL/L (3.5-5.1)
[2024-03-23] MEDS ORDERED: ROCA0.25 PO (07:44)
[2024-03-23] MEDS ORDERED: fentaNYL 100 MCG/2 ML INJECTION IV PRN (08:30)
[2024-03-23] MEDS: PANTOPRAZOLE 40MG VIAL IV SCH (09:46)
[2024-03-23] MEDS: ACETAMINOPHEN *IV* 1,000 MG in IV 1 EA IV SCH (09:49)
[2024-03-23] MEDS ORDERED: ASPI81TA26 PO (12:53)
[2024-03-23] MEDS ORDERED: ACET1TAB37 PO (12:53)
[2024-03-23] MEDS ORDERED: HOME MED LIST COMPLETE! XX SCH (12:55)
[2024-03-23] MEDS ORDERED: ALBUTEROL 90 MCG/ACT 8GM HFA INHALER INH PRN (15:55)
[2024-03-23 17:28] LABS: HEMATOCRIT 32.6 % (36.0-47.0); HEMOGLOBIN 10.4 g/dl (12.0-15.5); MEAN CORPUSCULAR HEMOGLOBIN 28.3 pg (27.0-33.0); MEAN CORPUSCULAR HGB CONC 31.9 g/dl (32.0-36.5); MEAN CORPUSCULAR VOLUME 88.6 fl (80.0-96.0); PLATELET COUNT, AUTOMATED 175 10^3/uL (150-450); RED BLOOD COUNT 3.68 10^6/uL (4.00-5.40); WHITE BLOOD COUNT 7.2 10^3/uL (4.0-10.0)
[2024-03-23 18:00] LABS: CREATININE FOR GFR 1.56 MG/DL (0.55-1.30); POTASSIUM SERUM 3.6 MMOL/L (3.5-5.1)
[2024-03-24 03:51] VITALS: BP 150/57; TEMP 98.7; O2SAT 96
[2024-03-24 05:08] LABS: BASO % 0.1 % (0.0-1.0); EOS # 0.1 10^3/uL (0.0-0.5); EOS % 0.7 % (0.0-3.0); HEMATOCRIT 31.5 % (36.0-47.0); HEMOGLOBIN 9.7 g/dl (12.0-15.5); LYMPH # 0.6 10^3/uL (1.5-5.0); LYMPH % 8.5 % (24.0-44.0); MEAN CORPUSCULAR HEMOGLOBIN 27.3 pg (27.0-33.0); MEAN CORPUSCULAR HGB CONC 30.8 g/dl (32.0-36.5); MEAN CORPUSCULAR VOLUME 88.7 fl (80.0-96.0); MONO # 0.1 10^3/uL (0.0-0.8); MONO % 1.8 % (2.0-8.0); NEUTROPHILS % 88.5 % (36.0-66.0); PLATELET COUNT, AUTOMATED 166 10^3/uL (150-450); RED BLOOD COUNT 3.55 10^6/uL (4.00-5.40); WHITE BLOOD COUNT 6.8 10^3/uL (4.0-10.0)
[2024-03-24 05:52] LABS: ALBUMIN 2.5 G/DL (3.2-5.2); BILIRUBIN,DIRECT 0.3 MG/DL (<0.4); BILIRUBIN,TOTAL 0.9 MG/DL (0.3-1.2); CALCIUM LEVEL 6.8 MG/DL (8.3-10.6); CREATININE FOR GFR 1.66 MG/DL (0.55-1.30); GLOMERULAR FILTRATION RATE 31.6 (>32); POTASSIUM SERUM 3.5 MMOL/L (3.5-5.1); TOTAL PROTEIN 5.3 G/DL (5.7-8.2)
[2024-03-24] MEDS: DOCUSATE SODIUM 100MG CAPSULE PO SCH (09:23)
[2024-03-24] MEDS: LEVOTHYROXINE 100MCG (0.1MG) 5ML SDV PF (SOLUTION FORM) IV SCH (09:23)
[2024-03-24 09:29] VITALS: BP 168/74; TEMP 97.9; O2SAT 95
[2024-03-24] MEDS: CALCITRIOL 0.25 MCG CAP (S0169) PO SCH (12:00)
[2024-03-24] MEDS: POTASSIUM CHLORIDE 10MEQ SR TABLET PO SCH (13:04)
[2024-03-24] MEDS: FUROSEMIDE 20 MG TAB PO SCH (13:05)
[2024-03-24] MEDS: busPIRone 5 MG TAB PO SCH (13:05)
[2024-03-24] MEDS: METOPROLOL SUCC (TopROL XL) 50MG **XL** TAB PO SCH (13:05)
[2024-03-24] MEDS: GABAPENTIN 100 MG CAP PO SCH (20:12)
[2024-03-24] MEDS: SERTRALINE HCL 25 MG TABLET PO SCH (20:13)
[2024-03-24] MEDS: SIMVASTATIN 40 MG TAB PO SCH (20:13)
[2024-03-24] MEDS: ENOXAPARIN 30MG/0.3ML SYRINGE (J1650 PER 10MG) SC SCH (20:14)
[2024-03-24 20:18] VITALS: BP 180/81; TEMP 98.8; O2SAT 93
[2024-03-24 20:20] VITALS: BP 168/74
[2024-03-25 00:28] VITALS: BP 147/65; TEMP 97.8; O2SAT 94
[2024-03-25 04:00] VITALS: BP 163/75; TEMP 97.3; O2SAT 93
[2024-03-25 05:10] LABS: BASO % 0.3 % (0.0-1.0); EOS # 0.2 10^3/uL (0.0-0.5); HEMATOCRIT 31.6 % (36.0-47.0); HEMOGLOBIN 9.8 g/dl (12.0-15.5); LYMPH # 0.7 10^3/uL (1.5-5.0); LYMPH % 8.8 % (24.0-44.0); MEAN CORPUSCULAR HEMOGLOBIN 27.5 pg (27.0-33.0); MEAN CORPUSCULAR VOLUME 88.8 fl (80.0-96.0); MONO # 0.1 10^3/uL (0.0-0.8); MONO % 1.5 % (2.0-8.0); NEUTROPHILS # 6.8 10^3/uL (1.5-8.5); NEUTROPHILS % 86.3 % (36.0-66.0); PLATELET COUNT, AUTOMATED 177 10^3/uL (150-450); RED BLOOD COUNT 3.56 10^6/uL (4.00-5.40); WHITE BLOOD COUNT 7.9 10^3/uL (4.0-10.0)
[2024-03-25 05:30] LABS: CALCIUM LEVEL 6.9 MG/DL (8.3-10.6); CREATININE FOR GFR 1.6 MG/DL (0.55-1.30); POTASSIUM SERUM 3.6 MMOL/L (3.5-5.1)
[2024-03-25] MEDS: LEVOTHYROXINE 88MCG TABLET (0.088 MG) PO SCH (06:04)
[2024-03-25 08:00] VITALS: BP 184/81; TEMP 97.2; O2SAT 92
[2024-03-25] MEDS ORDERED: MORPHINE 4 MG/ML 1ML VIAL IV PRN (08:20)
[2024-03-25] MEDS ORDERED: MORPHINE 2 MG/ML 1ML VIAL IV PRN (08:20)
[2024-03-25] MEDS: ACETAMINOPHEN 500 MG TAB PO PRN (08:41)
[2024-03-25 12:00] VITALS: BP 185/84; TEMP 97; O2SAT 93
[2024-03-25 16:00] VITALS: BP 185/86; TEMP 97.9; O2SAT 92
[2024-03-25] MEDS: CAPTOpril 12.5 MG TAB PO SCH (17:10)
[2024-03-25 20:13] VITALS: BP 158/73; TEMP 98; O2SAT 94
[2024-03-25] MEDS: IPRATROPIUM 0.5MG/ALBUTEROL 2.5MG INH SOL UD 3ML (DUONEB) NEB PRN (23:16)
[2024-03-26] VITALS (9 sets, daily range): BP systolic 106–210; BP diastolic 51–92; TEMP 97.1–98; O2SAT 92–98
[2024-03-26 05:31] LABS: BASO % 0.2 % (0.0-1.0); EOS # 0.1 10^3/uL (0.0-0.5); EOS % 1.7 % (0.0-3.0); HEMATOCRIT 30.9 % (36.0-47.0); HEMOGLOBIN 9.5 g/dl (12.0-15.5); LYMPH # 0.8 10^3/uL (1.5-5.0); LYMPH % 10.1 % (24.0-44.0); MEAN CORPUSCULAR HEMOGLOBIN 27.9 pg (27.0-33.0); MEAN CORPUSCULAR HGB CONC 30.7 g/dl (32.0-36.5); MEAN CORPUSCULAR VOLUME 90.6 fl (80.0-96.0); MONO # 0.2 10^3/uL (0.0-0.8); MONO % 2.8 % (2.0-8.0); NEUTROPHILS # 6.9 10^3/uL (1.5-8.5); NEUTROPHILS % 84.1 % (36.0-66.0); PLATELET COUNT, AUTOMATED 206 10^3/uL (150-450); RED BLOOD COUNT 3.41 10^6/uL (4.00-5.40); WHITE BLOOD COUNT 8.3 10^3/uL (4.0-10.0)
[2024-03-26 06:19] LABS: CALCIUM LEVEL 7.1 MG/DL (8.3-10.6); CREATININE FOR GFR 1.44 MG/DL (0.55-1.30); GLOMERULAR FILTRATION RATE 37.3 (>32); POTASSIUM SERUM 3.6 MMOL/L (3.5-5.1)
[2024-03-26] MEDS: PANTOPRAZOLE 40MG TAB (PROTONIX) PO SCH (09:08)
[2024-03-26] MEDS: FUROSEMIDE 40MG/4ML VIAL IV ONE (11:23)
[2024-03-26] MEDS: INSULIN LISPRO (NovoLOG) PER UNIT SC SCH ×2 (12:00→20:12)
[2024-03-26] MEDS: traMADol 50 MG TAB PO PRN (13:47)
[2024-03-26] MEDS: CAPTOpril 12.5 MG TAB PO ONE (18:04)
[2024-03-26] MEDS: hydrALAZINE 20MG/ML 1ML VIAL IV ONE (22:06)
[2024-03-27] VITALS: BP 107/56; TEMP 98.7; O2SAT 95
[2024-03-27 04:01] VITALS: BP 136/75; TEMP 97.1; O2SAT 96
[2024-03-27 05:37] LABS: BASO % 0.1 % (0.0-1.0); EOS # 0.2 10^3/uL (0.0-0.5); EOS % 2.2 % (0.0-3.0); HEMATOCRIT 29.8 % (36.0-47.0); LYMPH % 13.8 % (24.0-44.0); MEAN CORPUSCULAR HEMOGLOBIN 27.9 pg (27.0-33.0); MEAN CORPUSCULAR HGB CONC 30.2 g/dl (32.0-36.5); MEAN CORPUSCULAR VOLUME 92.3 fl (80.0-96.0); MONO # 0.2 10^3/uL (0.0-0.8); MONO % 3.2 % (2.0-8.0); NEUTROPHILS # 5.6 10^3/uL (1.5-8.5); NEUTROPHILS % 77.8 % (36.0-66.0); PLATELET COUNT, AUTOMATED 216 10^3/uL (150-450); RED BLOOD COUNT 3.23 10^6/uL (4.00-5.40); WHITE BLOOD COUNT 7.2 10^3/uL (4.0-10.0)
[2024-03-27 06:15] LABS: CALCIUM LEVEL 6.7 MG/DL (8.3-10.6); CREATININE FOR GFR 1.63 MG/DL (0.55-1.30); GLOMERULAR FILTRATION RATE 32.3 (>32); POTASSIUM SERUM 3.2 MMOL/L (3.5-5.1)
[2024-03-27] MEDS: POTASSIUM CHLORIDE 10MEQ SR TABLET PO ONE (06:53)
[2024-03-27 08:00] VITALS: BP 156/80; TEMP 98; O2SAT 96
[2024-03-27] MEDS: IPRATROPIUM 0.5MG/ALBUTEROL 2.5MG INH SOL UD 3ML (DUONEB) NEB SCH (08:00)
[2024-03-27] MEDS: CAPTOpril 12.5 MG TAB PO SCH (09:09)
[2024-03-27 14:00] VITALS: BP 160/78; TEMP 97.8; O2SAT 98
[2024-03-27 16:00] VITALS: BP 160/78; TEMP 97.8; O2SAT 98
[2024-03-27] MEDS: NITROGLYCERIN 2% OINT 1 GM *U/D* PKT TOP ONE (18:48)
[2024-03-27 20:01] VITALS: BP 149/70; TEMP 97.4; O2SAT 96
[2024-03-28] VITALS (7 sets, daily range): BP systolic 130–180; BP diastolic 61–74; TEMP 97.9–98.6; O2SAT 93–100
[2024-03-28 05:55] LABS: HEMATOCRIT 30.6 % (36.0-47.0); HEMOGLOBIN 9.2 g/dl (12.0-15.5); MEAN CORPUSCULAR HEMOGLOBIN 27.9 pg (27.0-33.0); MEAN CORPUSCULAR HGB CONC 30.1 g/dl (32.0-36.5); MEAN CORPUSCULAR VOLUME 92.7 fl (80.0-96.0); PLATELET COUNT, AUTOMATED 216 10^3/uL (150-450)
[2024-03-28 06:08] LABS: CALCIUM LEVEL 7.2 MG/DL (8.3-10.6); CREATININE FOR GFR 1.35 MG/DL (0.55-1.30); GLOMERULAR FILTRATION RATE 40.2 (>32); POTASSIUM SERUM 3.6 MMOL/L (3.5-5.1)
[2024-03-28 06:49] LABS: ANISOCYTOSIS 1+; ATYPICAL LYMPH 1 % (0-5); EOSINOPHILS 1 % (0-3); LYMPHOCYTES 16 % (16-44); MONOCYTES 2 % (0-5); NEUTROPHILS 80 % (28-66); PLATELET ESTIMATE NORMAL (NORMAL); POLYCHROMASIA 1+
[2024-03-28 06:50] LABS: OVALOCYTES 1+; POIKILOCYTOSIS 1+
[2024-03-28] MEDS: MOM 30ML SUSPENSION UDC PO SCH (16:46)
[2024-03-28] MEDS: traMADol 50 MG TAB PO PRN (16:57)
[2024-03-28] MEDS: **hydrALAZINE HCL** 25 MG TAB PO SCH (18:10)
[2024-03-28] MEDS: ROSUVASTATIN 10 MG TAB (CRESTOR) PO SCH (20:31)
[2024-03-29] VITALS (8 sets, daily range): BP systolic 125–198; BP diastolic 58–84; TEMP 97.6–98.6; O2SAT 90–99
[2024-03-29 05:21] LABS: HEMATOCRIT 29.3 % (36.0-47.0); HEMOGLOBIN 8.8 g/dl (12.0-15.5); MEAN CORPUSCULAR HEMOGLOBIN 27.4 pg (27.0-33.0); MEAN CORPUSCULAR VOLUME 91.3 fl (80.0-96.0); PLATELET COUNT, AUTOMATED 253 10^3/uL (150-450); RED BLOOD COUNT 3.21 10^6/uL (4.00-5.40)
[2024-03-29 05:39] LABS: ATYPICAL LYMPH 1 % (0-5); EOSINOPHILS 1 % (0-3); LYMPHOCYTES 17 % (16-44); MONOCYTES 4 % (0-5); NEUTROPHILS 77 % (28-66)
[2024-03-29 05:43] LABS: ANISOCYTOSIS 1+; PLATELET ESTIMATE NORMAL (NORMAL)
[2024-03-29 05:45] LABS: HYPOCHROMASIA 1+
[2024-03-29 05:50] LABS: CALCIUM LEVEL 7.6 MG/DL (8.3-10.6); CREATININE FOR GFR 1.18 MG/DL (0.55-1.30); GLOMERULAR FILTRATION RATE 46.9 (>32); POTASSIUM SERUM 3.7 MMOL/L (3.5-5.1)
[2024-03-29] MEDS: ACETAMINOPHEN 500 MG TAB PO ONE (08:41)
[2024-03-29] MEDS: LACTULOSE 20GM/30ML SYRUP UDC PO ONE (08:42)
[2024-03-29] MEDS: FUROSEMIDE 20 MG TAB PO ONE (08:43)
[2024-03-29] MEDS: SENOKOT S TAB PO ONE (08:43)
[2024-03-29] MEDS: **hydrALAZINE** 10 MG TAB PO SCH (08:44)
[2024-03-29] MEDS: CAPTOpril 12.5 MG TAB PO ONE ×2 (08:45→18:13)
[2024-03-29] MEDS: NITROGLYCERIN 2% OINT 1 GM *U/D* PKT TOP ONE (18:14)
[2024-03-29] MEDS: cloNIDine 0.1MG TABLET PO ONE (18:16)
[2024-03-29] MEDS ORDERED: CAPTOpril 12.5 MG TAB PO SCH (21:00)
[2024-03-30] VITALS: BP 107/62; TEMP 98.1; O2SAT 90
[2024-03-30] MEDS: **hydrALAZINE** 50 MG TAB PO SCH
[2024-03-30] MEDS: IPRATROPIUM 0.5MG/ALBUTEROL 2.5MG INH SOL UD 3ML (DUONEB) NEB PRN (01:36)
[2024-03-30 04:00] VITALS: BP_SYST 126; BP_SYST 129; BP_DIAS 60; BP_DIAS 62; TEMP 98; O2SAT 91; O2SAT 92
[2024-03-30 08:00] VITALS: BP 147/73; TEMP 99.2; O2SAT 99
[2024-03-30 08:21] LABS: BASO % 0.2 % (0.0-1.0); EOS # 0.1 10^3/uL (0.0-0.5); EOS % 0.6 % (0.0-3.0); HEMATOCRIT 26.9 % (36.0-47.0); HEMOGLOBIN 8.1 g/dl (12.0-15.5); LYMPH % 9.5 % (24.0-44.0); MEAN CORPUSCULAR HEMOGLOBIN 27.6 pg (27.0-33.0); MEAN CORPUSCULAR HGB CONC 30.1 g/dl (32.0-36.5); MEAN CORPUSCULAR VOLUME 91.5 fl (80.0-96.0); MONO # 0.5 10^3/uL (0.0-0.8); MONO % 4.3 % (2.0-8.0); NEUTROPHILS # 9.1 10^3/uL (1.5-8.5); NEUTROPHILS % 83.6 % (36.0-66.0); PLATELET COUNT, AUTOMATED 267 10^3/uL (150-450); RED BLOOD COUNT 2.94 10^6/uL (4.00-5.40); WHITE BLOOD COUNT 10.9 10^3/uL (4.0-10.0)
[2024-03-30 08:46] LABS: CALCIUM LEVEL 7.3 MG/DL (8.3-10.6); CREATININE FOR GFR 1.14 MG/DL (0.55-1.30); GLOMERULAR FILTRATION RATE 48.8 (>32); POTASSIUM SERUM 3.7 MMOL/L (3.5-5.1)
[2024-03-30] MEDS: CAPTOpril 12.5 MG TAB PO SCH (09:00)
[2024-03-30 14:00] VITALS: BP 98/54; TEMP 97.4; O2SAT 89
[2024-03-30 18:00] VITALS: BP 148/68; O2SAT 96
[2024-03-30 20:00] VITALS: BP 158/75; TEMP 98.3; O2SAT 96
[2024-03-31] VITALS (18 sets, daily range): BP systolic 114–175; BP diastolic 58–81; TEMP 98.1–98.6; O2SAT 81–98
[2024-03-31 05:36] LABS: BASO % 0.2 % (0.0-1.0); EOS # 0.1 10^3/uL (0.0-0.5); EOS % 0.5 % (0.0-3.0); HEMATOCRIT 30.2 % (36.0-47.0); HEMOGLOBIN 9.3 g/dl (12.0-15.5); LYMPH # 1.3 10^3/uL (1.5-5.0); LYMPH % 8.2 % (24.0-44.0); MEAN CORPUSCULAR HGB CONC 30.8 g/dl (32.0-36.5); MONO # 0.6 10^3/uL (0.0-0.8); MONO % 3.9 % (2.0-8.0); NEUTROPHILS # 13.3 10^3/uL (1.5-8.5); NEUTROPHILS % 85.3 % (36.0-66.0); PLATELET COUNT, AUTOMATED 331 10^3/uL (150-450); RED BLOOD COUNT 3.32 10^6/uL (4.00-5.40); WHITE BLOOD COUNT 15.5 10^3/uL (4.0-10.0)
[2024-03-31 06:05] LABS: CALCIUM LEVEL 8.1 MG/DL (8.3-10.6); CREATININE FOR GFR 1.19 MG/DL (0.55-1.30); GLOMERULAR FILTRATION RATE 46.5 (>32); POTASSIUM SERUM 3.9 MMOL/L (3.5-5.1)
[2024-03-31] MEDS ORDERED: ISOVUE-370 76% 100ML VIAL As Ordered ONE (07:32)
[2024-03-31 07:43] LABS: PROCALCITONIN 0.16 ng/ml
[2024-03-31] MEDS ORDERED: PIPERACILLIN/TAZOBACTAM SOD 4.5 GM in D5W MINI-BAG PLUS 50 ML IV SCH (08:00)
[2024-03-31] MEDS: PIPERACILLIN/TAZOBACTAM SOD 3.375 GM in D5W MINI-BAG PLUS 50 ML IV SCH (08:40)
[2024-03-31] MEDS: GASTROGRAFIN SOLUTION 30ML PO SCH (08:40)
[2024-03-31 10:13] LABS: APPEARANCE, URINE MANUAL HAZY (CLEAR); BILIRUBIN, URINE MANUAL NEGATIVE (NEGATIVE); COLOR, URINE MANUAL YELLOW (YELLOW); GLUCOSE, URINE (UA) MANUAL NEGATIVE (NEGATIVE); KETONE, URINE MANUAL NEGATIVE (NEGATIVE); NITRITE, URINE MANUAL NEGATIVE (NEGATIVE); PROTEIN, URINE MANUAL NEGATIVE (NEGATIVE); SPECIFIC GRAVITY,URINE MANUAL 1.015 (1.002-1.035); UROBILINOGEN, URINE MANUAL NORMAL (NORMAL)
[2024-03-31 10:14] LABS: BLOOD URINE MANUAL NEGATIVE (NEGATIVE); LEUKOCYTE ESTERASE, URINE MAN POSITIVE (NEGATIVE)
[2024-03-31 10:15] LABS: WBC, URINE 30-40 /hpf (0-3)
[2024-03-31 10:17] LABS: BACTERIA, URINE SMALL AMOUNT; GRANULAR CAST, URINE 0-1 /lpf; YEAST, URINE SMALL AMOUNT
[2024-03-31 10:18] LABS: HYALINE CAST, URINE 0-1 /lpf (0-1); SQUAMOUS EPITHELIAL CELL URINE MOD AMOUNT /hpf (SMALL AMT)
[2024-03-31] MEDS: ASPIRIN 81MG ENTERIC TABLET PO SCH (11:42)
[2024-03-31] MEDS: APIXABAN 5 MG TAB (ELIQUIS) PO SCH (11:43)
[2024-04-01] VITALS (15 sets, daily range): BP systolic 74–219; BP diastolic 39–102; TEMP 98–100.8; O2SAT 87–96
[2024-04-01 05:51] LABS: BASO % 0.2 % (0.0-1.0); EOS # 0.1 10^3/uL (0.0-0.5); EOS % 0.3 % (0.0-3.0); HEMATOCRIT 28.7 % (36.0-47.0); HEMOGLOBIN 8.8 g/dl (12.0-15.5); LYMPH # 0.8 10^3/uL (1.5-5.0); LYMPH % 4.9 % (24.0-44.0); MEAN CORPUSCULAR HEMOGLOBIN 27.3 pg (27.0-33.0); MEAN CORPUSCULAR HGB CONC 30.7 g/dl (32.0-36.5); MEAN CORPUSCULAR VOLUME 89.1 fl (80.0-96.0); MONO # 0.8 10^3/uL (0.0-0.8); NEUTROPHILS # 13.5 10^3/uL (1.5-8.5); NEUTROPHILS % 88.3 % (36.0-66.0); PLATELET COUNT, AUTOMATED 373 10^3/uL (150-450); RED BLOOD COUNT 3.22 10^6/uL (4.00-5.40); WHITE BLOOD COUNT 15.3 10^3/uL (4.0-10.0)
[2024-04-01 06:15] LABS: CALCIUM LEVEL 7.8 MG/DL (8.3-10.6); CREATININE FOR GFR 1.1 MG/DL (0.55-1.30); GLOMERULAR FILTRATION RATE 50.9 (>32); POTASSIUM SERUM 3.8 MMOL/L (3.5-5.1)
[2024-04-01] MEDS ORDERED: LIDOCAINE 1% MDV 20ML VIAL As Ordered ONE (11:05)
[2024-04-01] MEDS: ONDANSETRON 4MG 2ML VIAL IV PRN (12:57)
[2024-04-01] MEDS ORDERED: VANCOMYCIN HCL 1,000 MG, VIAL MATE ADAPTER 1 EACH in D5W 250 ML IV SCH (14:20)
[2024-04-01] MEDS: METOPROLOL 5 MG/5 ML VIAL IV SCH (14:30)
[2024-04-01 14:55] LABS: HEMATOCRIT 31.3 % (36.0-47.0); HEMOGLOBIN 9.6 g/dl (12.0-15.5); MEAN CORPUSCULAR HEMOGLOBIN 27.3 pg (27.0-33.0); MEAN CORPUSCULAR HGB CONC 30.7 g/dl (32.0-36.5); MEAN CORPUSCULAR VOLUME 88.9 fl (80.0-96.0); PLATELET COUNT, AUTOMATED 280 10^3/uL (150-450); RED BLOOD COUNT 3.52 10^6/uL (4.00-5.40); WHITE BLOOD COUNT 6.1 10^3/uL (4.0-10.0)
[2024-04-01] MEDS: NITROGLYCERIN 2% OINT 1 GM *U/D* PKT TOP ONE (15:02)
[2024-04-01] MEDS: hydrALAZINE 20MG/ML 1ML VIAL IV STA (15:02)
[2024-04-01] MEDS: FUROSEMIDE 40MG/4ML VIAL IV ONE (15:03)
[2024-04-01 15:14] LABS: CK-MB VALUE MASS < 1.0 NG/ML (<3.6); LIPASE 36 U/L (12-53)
[2024-04-01 15:15] LABS: AMYLASE 44 U/L (30-118)
[2024-04-01 15:16] LABS: ALBUMIN 2.2 G/DL (3.2-5.2); ALKALINE PHOSPHATASE 136 U/L (46-116); ALT/SGPT 9 U/L (7.0-40); AST/SGOT 27 U/L (<34); BILIRUBIN,TOTAL 1.1 MG/DL (0.3-1.2); BLOOD UREA NITROGEN 11 MG/DL (9-23); CALCIUM LEVEL 8.1 MG/DL (8.3-10.6); CARBON DIOXIDE LEVEL 34 MMOL/L (20-31); CHLORIDE LEVEL 102 MMOL/L (98-107); CREATININE FOR GFR 1.06 MG/DL (0.55-1.30); GLOMERULAR FILTRATION RATE 53.1 (>32); GLUCOSE, FASTING 74 MG/DL (74-106); POTASSIUM SERUM 3.3 MMOL/L (3.5-5.1); SODIUM LEVEL 140 MMOL/L (136-145)
[2024-04-01 15:19] LABS: CPK CREATINE PHOSPHOKINASE 89 U/L (34-145); MB/CK RELATIVE INDEX 1.12 (< OR =4)
[2024-04-01 15:29] LABS: LYMPHOCYTES 1 % (16-44); METAMYELOCYTES 1 % (0-0); NEUTROPHILS 79 % (28-66)
[2024-04-01 15:30] LABS: HYPOCHROMASIA 1+
[2024-04-01 15:31] LABS: PLATELET ESTIMATE NORMAL (NORMAL)
[2024-04-01 15:38] LABS: ERYTHROCYTE SEDIMENTATION RATE 74 mm/hr (0-30)
[2024-04-01] MEDS ORDERED: D5W/0.9% SODIUM CHLORIDE 1,000 ML IV SCH (16:10)
[2024-04-01] MEDS: VANCOMYCIN 1,500 MG/300 ML IV BAG *LOAD IV ONE (16:13)
[2024-04-01 16:22] LABS: ABG HCO3 32.4 MMOL/L (22.0-26.0); ABG O2 SATURATION 97.7 % (95.0-99.0); ABG PARTIAL PRESSURE CO2 50.8 mmHg (35.0-45.0); ABG PARTIAL PRESSURE O2 99.6 mmHg (75.0-100.0); ABG STANDARD HCO3 30.9 MMOL/L. (22.0-26.0); ABG pH (ARTERIAL) 7.423 UNITS (7.350-7.450)
[2024-04-01] MEDS: D5W/0.9% SODIUM CHLORIDE 1,000 ML IV SCH (17:06)
[2024-04-02] VITALS (10 sets, daily range): BP systolic 88–164; BP diastolic 50–77; TEMP 97.9–98.3; O2SAT 93–97
[2024-04-02 06:06] LABS: BASO # 0.1 10^3/uL (0.0-0.2); BASO % 0.2 % (0.0-1.0); HEMATOCRIT 23.1 % (36.0-47.0); LYMPH # 0.7 10^3/uL (1.5-5.0); LYMPH % 2.8 % (24.0-44.0); MEAN CORPUSCULAR HEMOGLOBIN 27.8 pg (27.0-33.0); MEAN CORPUSCULAR HGB CONC 30.7 g/dl (32.0-36.5); MEAN CORPUSCULAR VOLUME 90.6 fl (80.0-96.0); MONO # 0.8 10^3/uL (0.0-0.8); MONO % 3.2 % (2.0-8.0); NEUTROPHILS % 89.1 % (36.0-66.0); PLATELET COUNT, AUTOMATED 235 10^3/uL (150-450); RED BLOOD COUNT 2.55 10^6/uL (4.00-5.40); WHITE BLOOD COUNT 25.8 10^3/uL (4.0-10.0)
[2024-04-02 06:14] LABS: HEMOGLOBIN 7.1 g/dl (12.0-15.5)
[2024-04-02 06:38] LABS: CALCIUM LEVEL 7.4 MG/DL (8.3-10.6); CREATININE FOR GFR 1.42 MG/DL (0.55-1.30); GLOMERULAR FILTRATION RATE 37.9 (>32); POTASSIUM SERUM 3.3 MMOL/L (3.5-5.1); VANCOMYCIN RANDOM 15.4 UG/ML
[2024-04-02 07:50] LABS: HEMATOCRIT 24.6 % (36.0-47.0); HEMOGLOBIN 7.6 g/dl (12.0-15.5)
[2024-04-02] MEDS: MIDODRINE 5 MG TAB PO ONE (08:50)
[2024-04-02] MEDS: VANCOMYCIN 1,250 MG/250 ML IV BAG IV SCH (08:52)
[2024-04-02 13:17] LABS: HEMATOCRIT 27.2 % (36.0-47.0); HEMOGLOBIN 8.5 g/dl (12.0-15.5)
[2024-04-02] MEDS ORDERED: LEVALBUTEROL 1.25MG 0.5ML CONCENTRATE NEB INH PRN (17:40)
[2024-04-02] MEDS ORDERED: POTASSIUM CHLORIDE 10MEQ SR TABLET PO ONE (18:00)
[2024-04-02] MEDS: MEROPENEM INJ 1 GM in IV 1 EA IV SCH (18:30)
[2024-04-02 19:00] LABS: HEMATOCRIT 27.2 % (36.0-47.0); HEMOGLOBIN 8.6 g/dl (12.0-15.5)
[2024-04-02] MEDS: LEVALBUTEROL 1.25MG 0.5ML CONCENTRATE NEB INH SCH (19:17)
[2024-04-02] MEDS: HEPARIN SOD (PORCINE) 5000UNITS/ML 1ML VIAL/SYRINGE SQ SCH (21:09)
[2024-04-03] VITALS (8 sets, daily range): BP systolic 120–210; BP diastolic 59–104; TEMP 97.1–98.8; O2SAT 89–96
[2024-04-03 07:03] LABS: HEMATOCRIT 28.2 % (36.0-47.0); HEMOGLOBIN 8.8 g/dl (12.0-15.5); MEAN CORPUSCULAR HEMOGLOBIN 27.9 pg (27.0-33.0); MEAN CORPUSCULAR HGB CONC 31.2 g/dl (32.0-36.5); MEAN CORPUSCULAR VOLUME 89.5 fl (80.0-96.0); PLATELET COUNT, AUTOMATED 286 10^3/uL (150-450); RED BLOOD COUNT 3.15 10^6/uL (4.00-5.40)
[2024-04-03 07:30] LABS: BASOPHILS 1 % (0-1); EOSINOPHILS 1 % (0-3); LYMPHOCYTES 5 % (16-44); METAMYELOCYTES 1 % (0-0); MONOCYTES 3 % (0-5); NEUTROPHILS 85 % (28-66); PLASMA CELL 1 % (0-0)
[2024-04-03 07:33] LABS: ANISOCYTOSIS 1+; HYPOCHROMASIA 1+; OVALOCYTES 1+; PLATELET CLUMPS SMALL AMT; PLATELET ESTIMATE NORMAL (NORMAL); TEAR DROP CELLS 1+
[2024-04-03 07:34] LABS: VANCOMYCIN LEVEL TROUGH 17.8 UG/ML (10.0-20.0)
[2024-04-03 07:35] LABS: CALCIUM LEVEL 7.3 MG/DL (8.3-10.6); CREATININE FOR GFR 1.42 MG/DL (0.55-1.30); GLOMERULAR FILTRATION RATE 37.9 (>32); POTASSIUM SERUM 3.3 MMOL/L (3.5-5.1)
[2024-04-03 07:37] LABS: SCHISTOCYTES 1+
[2024-04-03] MEDS: VANCOMYCIN HCL 1,000 MG, VIAL MATE ADAPTER 1 EACH in D5W 250 ML IV SCH (09:29)
[2024-04-03] MEDS: METOPROLOL 5 MG/5 ML VIAL IV PRN (20:49)
[2024-04-04] VITALS (43 sets, daily range): BP systolic 101–216; BP diastolic 52–155; TEMP 97.6–98.8; O2SAT 82–97
[2024-04-04] MEDS: METOPROLOL 5 MG/5 ML VIAL IV STA (03:17)
[2024-04-04 05:16] LABS: BASO % 0.2 % (0.0-1.0); EOS # 0.1 10^3/uL (0.0-0.5); EOS % 0.5 % (0.0-3.0); HEMATOCRIT 29.9 % (36.0-47.0); HEMOGLOBIN 9.2 g/dl (12.0-15.5); LYMPH # 1.2 10^3/uL (1.5-5.0); MEAN CORPUSCULAR HEMOGLOBIN 27.5 pg (27.0-33.0); MEAN CORPUSCULAR HGB CONC 30.8 g/dl (32.0-36.5); MEAN CORPUSCULAR VOLUME 89.5 fl (80.0-96.0); MONO # 0.7 10^3/uL (0.0-0.8); MONO % 4.9 % (2.0-8.0); NEUTROPHILS # 10.8 10^3/uL (1.5-8.5); NEUTROPHILS % 81.3 % (36.0-66.0); PLATELET COUNT, AUTOMATED 349 10^3/uL (150-450); RED BLOOD COUNT 3.34 10^6/uL (4.00-5.40); WHITE BLOOD COUNT 13.3 10^3/uL (4.0-10.0)
[2024-04-04 05:40] LABS: CALCIUM LEVEL 8.1 MG/DL (8.3-10.6); CREATININE FOR GFR 1.44 MG/DL (0.55-1.30); GLOMERULAR FILTRATION RATE 37.3 (>32); POTASSIUM SERUM 3.9 MMOL/L (3.5-5.1)
[2024-04-04] MEDS: hydrALAZINE 20MG/ML 1ML VIAL IV ONE (06:22)
[2024-04-04] MEDS ORDERED: **hydrALAZINE HCL** 25 MG TAB PO ONE (07:40)
[2024-04-04] MEDS: **hydrALAZINE HCL** 25 MG TAB PO SCH (07:45)
[2024-04-04] MEDS: CAPTOpril 12.5 MG TAB PO ONE (08:05)
[2024-04-04] MEDS: **hydrALAZINE** 50 MG TAB PO SCH (12:46)
[2024-04-04] MEDS: cloNIDine 0.1MG TABLET PO ONE (13:30)
[2024-04-04] MEDS: ceFAZolin SOD 1 GM in D5W MINI-BAG PLUS 50 ML IV SCH (14:03)
[2024-04-04] MEDS: CAPTOpril 12.5 MG TAB PO SCH (20:15)
[2024-04-05] VITALS (10 sets, daily range): BP systolic 131–141; BP diastolic 60–71; TEMP 98.6–99.9; O2SAT 90–96
[2024-04-05 05:20] LABS: BASO % 0.2 % (0.0-1.0); EOS # 0.1 10^3/uL (0.0-0.5); EOS % 0.8 % (0.0-3.0); HEMOGLOBIN 8.5 g/dl (12.0-15.5); LYMPH # 1.4 10^3/uL (1.5-5.0); LYMPH % 16.6 % (24.0-44.0); MEAN CORPUSCULAR HEMOGLOBIN 27.5 pg (27.0-33.0); MEAN CORPUSCULAR HGB CONC 30.4 g/dl (32.0-36.5); MEAN CORPUSCULAR VOLUME 90.6 fl (80.0-96.0); MONO # 0.5 10^3/uL (0.0-0.8); MONO % 5.5 % (2.0-8.0); NEUTROPHILS # 6.1 10^3/uL (1.5-8.5); NEUTROPHILS % 71.4 % (36.0-66.0); PLATELET COUNT, AUTOMATED 341 10^3/uL (150-450); RED BLOOD COUNT 3.09 10^6/uL (4.00-5.40); WHITE BLOOD COUNT 8.6 10^3/uL (4.0-10.0)
[2024-04-05 05:48] LABS: CREATININE FOR GFR 1.59 MG/DL (0.55-1.30); GLOMERULAR FILTRATION RATE 33.3 (>32); POTASSIUM SERUM 4.1 MMOL/L (3.5-5.1)
[2024-04-06] VITALS (8 sets, daily range): BP systolic 144–168; BP diastolic 72–82; TEMP 97.3–97.9; O2SAT 80–97
[2024-04-06 06:02] LABS: HEMATOCRIT 29.3 % (36.0-47.0); HEMOGLOBIN 8.9 g/dl (12.0-15.5); MEAN CORPUSCULAR HEMOGLOBIN 27.6 pg (27.0-33.0); MEAN CORPUSCULAR HGB CONC 30.4 g/dl (32.0-36.5); PLATELET COUNT, AUTOMATED 378 10^3/uL (150-450); RED BLOOD COUNT 3.22 10^6/uL (4.00-5.40); WHITE BLOOD COUNT 8.2 10^3/uL (4.0-10.0)
[2024-04-06 06:24] LABS: C REACTIVE PROTEIN QUANTITATIV 3.3 MG/DL (<1.0)
[2024-04-06 06:25] LABS: CALCIUM LEVEL 8.2 MG/DL (8.3-10.6); CREATININE FOR GFR 1.51 MG/DL (0.55-1.30); GLOMERULAR FILTRATION RATE 35.3 (>32); POTASSIUM SERUM 4.2 MMOL/L (3.5-5.1)
[2024-04-06 07:31] LABS: EOSINOPHILS 1 % (0-3); LYMPHOCYTES 16 % (16-44); MONOCYTES 8 % (0-5); NEUTROPHILS 73 % (28-66)
[2024-04-06 07:32] LABS: ANISOCYTOSIS 1+; HYPOCHROMASIA 1+
[2024-04-06 07:35] LABS: PLATELET ESTIMATE NORMAL (NORMAL)
[2024-04-06] MEDS: ALBUTEROL 90 MCG/ACT 8GM HFA INHALER INH PRN (18:17)
[2024-04-07] VITALS (7 sets, daily range): BP systolic 138–198; BP diastolic 70–97; TEMP 97.9–98.8; O2SAT 92–95
[2024-04-07 05:40] LABS: BASO # 0.1 10^3/uL (0.0-0.2); BASO % 0.5 % (0.0-1.0); EOS # 0.1 10^3/uL (0.0-0.5); EOS % 0.9 % (0.0-3.0); HEMATOCRIT 32.7 % (36.0-47.0); HEMOGLOBIN 9.8 g/dl (12.0-15.5); LYMPH # 1.6 10^3/uL (1.5-5.0); LYMPH % 15.9 % (24.0-44.0); MEAN CORPUSCULAR HEMOGLOBIN 27.1 pg (27.0-33.0); MEAN CORPUSCULAR VOLUME 90.6 fl (80.0-96.0); MONO # 0.7 10^3/uL (0.0-0.8); MONO % 6.5 % (2.0-8.0); NEUTROPHILS # 6.9 10^3/uL (1.5-8.5); NEUTROPHILS % 68.1 % (36.0-66.0); PLATELET COUNT, AUTOMATED 433 10^3/uL (150-450); RED BLOOD COUNT 3.61 10^6/uL (4.00-5.40); WHITE BLOOD COUNT 10.1 10^3/uL (4.0-10.0)
[2024-04-07 06:04] LABS: C REACTIVE PROTEIN QUANTITATIV 2.8 MG/DL (<1.0)
[2024-04-07 06:05] LABS: CALCIUM LEVEL 8.4 MG/DL (8.3-10.6); CREATININE FOR GFR 1.32 MG/DL (0.55-1.30); GLOMERULAR FILTRATION RATE 41.2 (>32)
[2024-04-07] MEDS: CEPHALEXIN 500 MG CAP PO SCH (17:50)
[2024-04-08 00:30] VITALS: O2SAT 94
[2024-04-08 05:05] VITALS: BP 143/75; TEMP 98.1; O2SAT 91
[2024-04-08 08:15] VITALS: BP 167/82; TEMP 98.4; O2SAT 84
[2024-04-08] MEDS ORDERED: PILL CUTTER 1 EACH XX ONE (08:57)
[2024-04-08 09:00] VITALS: BP 167/82
[2024-04-08 09:31] LABS: BASO # 0.1 10^3/uL (0.0-0.2); BASO % 0.6 % (0.0-1.0); EOS # 0.1 10^3/uL (0.0-0.5); EOS % 1.3 % (0.0-3.0); HEMATOCRIT 32.2 % (36.0-47.0); HEMOGLOBIN 9.5 g/dl (12.0-15.5); LYMPH # 1.5 10^3/uL (1.5-5.0); LYMPH % 16.8 % (24.0-44.0); MEAN CORPUSCULAR HEMOGLOBIN 27.1 pg (27.0-33.0); MEAN CORPUSCULAR HGB CONC 29.5 g/dl (32.0-36.5); MEAN CORPUSCULAR VOLUME 91.7 fl (80.0-96.0); MONO # 0.6 10^3/uL (0.0-0.8); MONO % 6.5 % (2.0-8.0); NEUTROPHILS # 5.9 10^3/uL (1.5-8.5); NEUTROPHILS % 67.5 % (36.0-66.0); PLATELET COUNT, AUTOMATED 440 10^3/uL (150-450); RED BLOOD COUNT 3.51 10^6/uL (4.00-5.40); WHITE BLOOD COUNT 8.7 10^3/uL (4.0-10.0)
[2024-04-08 10:00] LABS: BLOOD UREA NITROGEN 12 MG/DL (9-23); CALCIUM LEVEL 8.4 MG/DL (8.3-10.6); CARBON DIOXIDE LEVEL 36 MMOL/L (20-31); CHLORIDE LEVEL 106 MMOL/L (98-107); CREATININE FOR GFR 1.14 MG/DL (0.55-1.30); GLOMERULAR FILTRATION RATE 48.8 (>32); GLUCOSE, FASTING 108 MG/DL (74-106); POTASSIUM SERUM 4.1 MMOL/L (3.5-5.1); SODIUM LEVEL 140 MMOL/L (136-145)
[2024-04-08 12:00] VITALS: BP_SYST 147; BP_SYST 161; BP_DIAS 51; BP_DIAS 77; TEMP 98.1; TEMP 98.4; O2SAT 92; O2SAT 94
[2024-04-08] MEDS ORDERED: PANT40TA29 PO (12:02)
[2024-04-08] MEDS ORDERED: CEPH500C PO (12:02)
[2024-04-08] MEDS ORDERED: HYDR50TA46 PO (12:02)
[2024-04-08] MEDS ORDERED: ROSU10TA61 PO (12:02)
[2024-04-08] MEDS ORDERED: CAPT125TA PO (12:02)
[2024-04-08] MEDS ORDERED: IPRA0.00 INH (12:04)
[2024-04-08] MEDS ORDERED: PRED20TA PO (12:04)
[2024-04-08] MEDS ORDERED: ALBU8.5H INH (12:04)
== END 2024-04-08 15:18 | disposition home health service (06) | DRG 329 ==
LOC: M ED 14:44 → EDBD 14:44 → M ED INP 03-23 00:15 → M ICU 03-23 03:31 → M MSPAV 04-04 14:46
PROVIDERS: ADMIT Surgery; ATTEND Hospitalist
PROC: 0D1N0Z4 Bypass Sigmoid Colon to Cutaneous, Open Approach (ICD-10-PCS; 2024-03-23)
PROC: 5A1935Z Respiratory Ventilation, Less than 24 Consecutive Hours (ICD-10-PCS; 2024-03-23)
PROC: 0DBN0ZZ Excision of Sigmoid Colon, Open Approach (ICD-10-PCS; principal; 2024-03-23 01:00)
PROC: 0W9J30Z Drainage of Pelvic Cavity with Drainage Device, Percutaneous Approach (ICD-10-PCS; 2024-04-01)
PROC: 30233N1 Transfusion of Nonautologous Red Blood Cells into Peripheral Vein, Percutaneous Approach (ICD-10-PCS; 2024-04-02)
DX: K57.20 Diverticulitis of large intestine with perforation and abscess without bleeding (principal); I50.23 Acute on chronic systolic (congestive) heart failure; G92.8 Other toxic encephalopathy; J96.21 Acute and chronic respiratory failure with hypoxia; N17.9 Acute kidney failure, unspecified; I13.0 Hypertensive heart and chronic kidney disease with heart failure and stage 1 through stage 4 chronic kidney disease, or unspecified chronic kidney disease; N39.0 Urinary tract infection, site not specified; D62 Acute posthemorrhagic anemia; N73.0 Acute parametritis and pelvic cellulitis; I48.0 Paroxysmal atrial fibrillation; M81.0 Age-related osteoporosis without current pathological fracture; K21.9 Gastro-esophageal reflux disease without esophagitis; J44.9 Chronic obstructive pulmonary disease, unspecified; E03.9 Hypothyroidism, unspecified; F39 Unspecified mood [affective] disorder; E11.22 Type 2 diabetes mellitus with diabetic chronic kidney disease; E11.42 Type 2 diabetes mellitus with diabetic polyneuropathy; N18.30 Chronic kidney disease, stage 3 unspecified; I73.9 Peripheral vascular disease, unspecified; E78.5 Hyperlipidemia, unspecified; Z95.810 Presence of automatic (implantable) cardiac defibrillator; F41.9 Anxiety disorder, unspecified; D63.8 Anemia in other chronic diseases classified elsewhere; I16.0 Hypertensive urgency; K44.9 Diaphragmatic hernia without obstruction or gangrene; Z99.81 Dependence on supplemental oxygen; B96.20 Unspecified Escherichia coli [E. coli] as the cause of diseases classified elsewhere; Z79.899 Other long term (current) drug therapy; Z79.82 Long term (current) use of aspirin; I95.2 Hypotension due to drugs

== ENCOUNTER → 2024-04-13 | Outpatient (CLI) | payer MEDICARE, OTHER ==
[~2024-04-13] MED LIST changes: +ACET1TAB37 PO; +ASPI81TA26 PO; +CAPT125TA PO; +CEPH500C PO; +HYDR50TA46 PO; +IPRA0.00 INH; +PANT40TA29 PO; +PRED20TA PO; +ROCA0.25 PO; +ROSU10TA61 PO
[2024-04-13 14:08] LABS: HEMATOCRIT 32.1 % (36.0-47.0); MEAN CORPUSCULAR HEMOGLOBIN 28.2 pg (27.0-33.0); MEAN CORPUSCULAR HGB CONC 31.2 g/dl (32.0-36.5); MEAN CORPUSCULAR VOLUME 90.7 fl (80.0-96.0); PLATELET COUNT, AUTOMATED 468 10^3/uL (150-450); RED BLOOD COUNT 3.54 10^6/uL (4.00-5.40); WHITE BLOOD COUNT 12.2 10^3/uL (4.0-10.0)
[2024-04-13 14:44] LABS: ALBUMIN 3.1 G/DL (3.2-5.2); BILIRUBIN,TOTAL 0.5 MG/DL (0.3-1.2); CALCIUM LEVEL 9.5 MG/DL (8.3-10.6); CREATININE FOR GFR 1.33 MG/DL (0.55-1.30); GLOMERULAR FILTRATION RATE 40.9 (>32); POTASSIUM SERUM 3.8 MMOL/L (3.5-5.1); TOTAL PROTEIN 6.7 G/DL (5.7-8.2)
== END ==
LOC: M LAB 11:24
PROVIDERS: ATTEND Physician Assistant
DX: Z98.0 Intestinal bypass and anastomosis status (principal); Z98.3 Post therapeutic collapse of lung status; Z79.899 Other long term (current) drug therapy

== ENCOUNTER → 2024-04-14 | Outpatient (CLI) | payer MEDICARE, OTHER ==
[~2024-04-14] MED LIST changes: +GASTROGRAFIN SOLUTION 30ML ONE; +ISOVUE-370 76% 100ML VIAL ONE
== END ==
LOC: M PLAIMG 10:11
PROVIDERS: ATTEND Physician Assistant
DX: Z98.0 Intestinal bypass and anastomosis status (principal); Z93.3 Colostomy status; J98.19 Other pulmonary collapse
CPT/HCPCS: 74178; Q9963; Q9967

== ENCOUNTER → 2024-04-25 | Outpatient (CLI) | payer MEDICARE, OTHER ==
[~2024-04-25] MED LIST changes: -GASTROGRAFIN SOLUTION 30ML ONE; -ISOVUE-370 76% 100ML VIAL ONE
== END ==
LOC: M RAD 11:03
PROVIDERS: ATTEND Registered Nurse
DX: J18.9 Pneumonia, unspecified organism (principal)

== ENCOUNTER → 2024-05-11 | Outpatient (REF) | payer MEDICARE, OTHER ==
[2024-05-11 14:11] LABS: APPEARANCE, URINE HAZY (CLEAR); BACTERIA, URINE AUTO 1+ (NEGATIVE); BILIRUBIN, URINE AUTO NEGATIVE (NEGATIVE); BLOOD, URINE BLOOD NEGATIVE (NEGATIVE); COLOR, URINE YELLOW (YELLOW); GLUCOSE, URINE (UA) AUTO NEGATIVE (NEGATIVE); KETONE, URINE AUTO NEGATIVE (NEGATIVE); LEUKOCYTE ESTERASE, URINE AUTO 3+ (NEGATIVE); MUCUS, URINE SMALL (NEGATIVE); NITRITE, URINE AUTO NEGATIVE (NEGATIVE); PROTEIN, URINE AUTO NEGATIVE (NEGATIVE); RBC, URINE AUTO 5 /HPF (0-3); SPECIFIC GRAVITY URINE AUTO 1.011 (1.002-1.035); SQUAMOUS EPITHELIAL CELL UR AU 6 /HPF (0-6); UROBILINOGEN, URINE AUTO 0.2 mg/dL (0.0-2.0); WBC, URINE AUTO 28 /HPF (0-3)
== END ==
LOC: M SMT 13:17
PROVIDERS: ATTEND Urology
DX: Z87.440 Personal history of urinary (tract) infections (principal); Z79.899 Other long term (current) drug therapy

== ENCOUNTER → 2024-05-23 | Outpatient (CLI) | payer MEDICARE, OTHER | LOC: M RAD 09:54 | PROVIDERS: ATTEND Registered Nurse | DX: J18.9 Pneumonia, unspecified organism (principal); J98.11 Atelectasis ==

== ENCOUNTER 2024-10-19 07:54 | Day surgery (SDC) | payer MEDICARE, OTHER ==
[~2024-10-19] VITALS: Ht 154.9 cm; Wt 65.4 kg
[~2024-10-19 07:54] MED LIST changes: +AMIO200T37 PO; +GLIP2.5T46 PO; +GLIP2.5T52 PO; -GLIP2.5T6 PO; +ROSU5TAB49 PO; +STOO100C30 PO; +[UNRECOGNIZED DRUG - OTHER]
[2024-10-19] MEDS ORDERED: propofoL 200 MG/20 ML VIAL As Ordered ONE (09:15)
[2024-10-19] MEDS ORDERED: LIDOCAINE 2% 100MG/5ML SDV (FOR ANES.) As Ordered ONE (09:16)
[2024-10-19 11:07] VITALS: TEMP 97.8
[2024-10-19 11:30] VITALS: BP 165/78; O2SAT 91
== END 2024-10-19 11:38 | disposition home or self-care (01) ==
LOC: M OPP 07:54
PROVIDERS: ATTEND Surgery
DX: K57.32 Diverticulitis of large intestine without perforation or abscess without bleeding (principal); K57.30 Diverticulosis of large intestine without perforation or abscess without bleeding; Z93.3 Colostomy status; Z95.0 Presence of cardiac pacemaker; Z79.82 Long term (current) use of aspirin; Z79.01 Long term (current) use of anticoagulants; Z79.899 Other long term (current) drug therapy; J44.9 Chronic obstructive pulmonary disease, unspecified